=== PATIENT | female | born 1965 | race Caucasian/White ===

== ENCOUNTER 2018-06-05 11:19 | Outpatient (CLI) | payer MEDICAID, SELFPAY ==
[2018-06-08 09:38] LABS: Abs Immature Grans 0.01 k/cumm (0.0-0.09); Absolute Basophil Count 0.02 k/cumm (0.0-0.2); Absolute Eosinophil Count 0.19 k/cumm (0.0-0.7); Absolute Lymphocyte Count 1.64 k/cumm (1.2-3.4); Absolute Monocyte Count 0.54 k/cumm (0.11-0.7); Absolute Neutrophil Count 6.63 k/cumm (1.2-6.7); Basophils % 0.2; Eosinophils % 2.1; HCT 42.6 % (36.0-46.0); HGB 13.9 g/dL (12.0-15.5); Immature Grans % 0.1; Lymphocytes % 18.2; Mean Corp. HGB Concentration 32.6 g/dL (32.0-36.0); Mean Corpuscular Hemoglobin 31.4 pg (27.0-33.0); Mean Corpuscular Volume 96.4 fL (80-95); Mean Platelet Volume 9.6 fL (8.0-11.0); Neutrophils % 73.4; Platelet Count 239 x1000/uL (130-400); RBC 4.42 m/cumm (4.00-5.20); RBC Distribution Width 13.2 % (11.7-14.6); White Blood Cell Count 9.03 k/cumm (4.4-10.8)
[2018-06-08 09:58] LABS: Hemoglobin A1C 5.5 % (4.5-6.2)
[2018-06-08 10:59] LABS: ALT 23 U/L (12-78); AST 28 U/L (15-37); Albumin 3.7 g/dL (3.4-5.0); Alkaline Phosphatase 86 U/L (46-116); Anion Gap 6.9 mmol/L (3-11); BUN 23 mg/dL (7-18); Bilirubin, Total 0.3 mg/dL (0.2-1.0); CO2 28.1 mmol/L (21.0-32.0); CREATININE 0.96 mg/dL (0.55-1.02); Calcium 9.5 mg/dL (8.5-10.1); Chloride 105 mmol/L (98-107); Glucose 87 mg/dL (70-100); Lithium 0.49 mmol/L (0.60-1.20); Potassium 4.6 mmol/L (3.5-5.1); Sodium 140 mmol/L (136-145); TSH 2.15 uIU/mL (0.358-3.74); Total Protein 7.2 g/dL (6.4-8.2)
== END 2018-06-05 11:39 ==
PROVIDERS: PCP Nurse Practitioner; Visit Provider Nurse Practitioner Psychiatric/Mental Health
DX: F43.10 Post-traumatic stress disorder, unspecified (principal); Z51.81 Encounter for therapeutic drug level monitoring; Z79.899 Other long term (current) drug therapy
CPT/HCPCS: 36415; 80053; 80178; 83036; 84443; 85025

== ENCOUNTER 2018-06-10 09:17 | Outpatient (CLI) | payer MEDICAID, SELFPAY ==
[2018-06-10 10:16] LABS: Abs Immature Grans 0.02 k/cumm (0.0-0.09); Absolute Basophil Count 0.03 k/cumm (0.0-0.2); Absolute Eosinophil Count 0.14 k/cumm (0.0-0.7); Absolute Lymphocyte Count 1.55 k/cumm (1.2-3.4); Absolute Monocyte Count 0.46 k/cumm (0.11-0.7); Absolute Neutrophil Count 6.53 k/cumm (1.2-6.7); Basophils % 0.3; Eosinophils % 1.6; HCT 41.9 % (36.0-46.0); HGB 13.8 g/dL (12.0-15.5); Immature Grans % 0.2; Lymphocytes % 17.8; Mean Corp. HGB Concentration 32.9 g/dL (32.0-36.0); Mean Corpuscular Hemoglobin 31.2 pg (27.0-33.0); Mean Corpuscular Volume 94.8 fL (80-95); Mean Platelet Volume 9.8 fL (8.0-11.0); Monocytes % 5.3; Neutrophils % 74.8; Platelet Count 252 x1000/uL (130-400); RBC 4.42 m/cumm (4.00-5.20); RBC Distribution Width 13.3 % (11.7-14.6); White Blood Cell Count 8.73 k/cumm (4.4-10.8)
[2018-06-10 10:46] LABS: ALT 23 U/L (12-78); AST 23 U/L (15-37); Albumin 3.7 g/dL (3.4-5.0); Alkaline Phosphatase 89 U/L (46-116); Anion Gap 7.6 mmol/L (3-11); BUN 17 mg/dL (7-18); Bilirubin, Total 0.4 mg/dL (0.2-1.0); CO2 28.4 mmol/L (21.0-32.0); CREATININE 1.03 mg/dL (0.55-1.02); Calcium 9.6 mg/dL (8.5-10.1); Chloride 103 mmol/L (98-107); Estimated GFR 56.27 (mL/min/1.73m2); Glucose 85 mg/dL (70-100); Potassium 4.3 mmol/L (3.5-5.1); Sodium 139 mmol/L (136-145); Total Protein 7.2 g/dL (6.4-8.2)
[2018-06-10 10:48] LABS: Cholesterol 284 mg/dL (50-200); HDL Cholesterol 50 mg/dL (40-60); LDL CHOLESTEROL 197 mg/dL (<100); Triglyceride 186 mg/dL (30-150)
[2018-06-10 11:03] LABS: Lithium 0.83 mmol/L (0.60-1.20)
[2018-06-11 14:49] LABS: HIV-1 RNA Quantification Undetected copies/mL (UNDECT)
[2018-06-12 09:14] LABS: CD3 74 % (62-87); CD4 38 % (35-63); CD8 36 % (10-35)
== END 2018-06-10 09:37 ==
PROVIDERS: Nurse Practitioner Psychiatric/Mental Health; PCP Nurse Practitioner; Visit Provider Nurse Practitioner Family
DX: B20 Human immunodeficiency virus [HIV] disease (principal); Z79.899 Other long term (current) drug therapy; F43.10 Post-traumatic stress disorder, unspecified; Z51.81 Encounter for therapeutic drug level monitoring
CPT/HCPCS: 36415; 80053; 80061; 83721; 87536; 80178; 85025; 86359; 86360

== ENCOUNTER 2018-06-12 09:18 | Outpatient (CLI) | payer MEDICAID, SELFPAY ==
[2018-06-12 10:43] LABS: ALT 43 U/L (12-78); AST 53 U/L (15-37); Albumin 3.5 g/dL (3.4-5.0); Alkaline Phosphatase 88 U/L (46-116); Anion Gap 8.2 mmol/L (3-11); BUN 19 mg/dL (7-18); Bilirubin, Total 0.3 mg/dL (0.2-1.0); CO2 26.8 mmol/L (21.0-32.0); CREATININE 1.06 mg/dL (0.55-1.02); Calcium 9.3 mg/dL (8.5-10.1); Chloride 105 mmol/L (98-107); Estimated GFR 54.44 (mL/min/1.73m2); Glucose 94 mg/dL (70-100); Potassium 4.7 mmol/L (3.5-5.1); Sodium 140 mmol/L (136-145)
[2018-06-12 11:27] LABS: Lithium 0.67 mmol/L (0.60-1.20)
== END 2018-06-12 09:38 ==
PROVIDERS: PCP Nurse Practitioner; Visit Provider Nurse Practitioner Psychiatric/Mental Health
DX: F43.10 Post-traumatic stress disorder, unspecified (principal); Z51.81 Encounter for therapeutic drug level monitoring; Z79.899 Other long term (current) drug therapy
CPT/HCPCS: 36415; 80053; 80178

== ENCOUNTER 2018-06-23 09:58 | Outpatient (CLI) | payer MEDICAID, SELFPAY ==
[2018-06-23 12:09] LABS: Lithium 0.47 mmol/L (0.60-1.20)
[2018-06-23 12:20] LABS: ALT 30 U/L (12-78); AST 24 U/L (15-37); Albumin 3.9 g/dL (3.4-5.0); Alkaline Phosphatase 99 U/L (46-116); Anion Gap 10.3 mmol/L (3-11); BUN 18 mg/dL (7-18); Bilirubin, Total 0.8 mg/dL (0.2-1.0); CO2 27.7 mmol/L (21.0-32.0); CREATININE 0.97 mg/dL (0.55-1.02); Calcium 9.7 mg/dL (8.5-10.1); Chloride 101 mmol/L (98-107); Glucose 95 mg/dL (70-100); Potassium 4.5 mmol/L (3.5-5.1); Sodium 139 mmol/L (136-145); Total Protein 7.5 g/dL (6.4-8.2)
== END 2018-06-23 10:18 ==
PROVIDERS: PCP Nurse Practitioner; Visit Provider Nurse Practitioner Psychiatric/Mental Health
DX: F43.10 Post-traumatic stress disorder, unspecified (principal); Z51.81 Encounter for therapeutic drug level monitoring; Z79.899 Other long term (current) drug therapy
CPT/HCPCS: 36415; 80053; 80178; 84443

== ENCOUNTER 2018-07-22 06:57 | Outpatient (CLI) | payer MEDICAID, SELFPAY ==
[2018-07-22 08:09] LABS: Lithium 0.61 mmol/L (0.60-1.20)
[2018-07-22 08:21] LABS: ALT 22 U/L (12-78); AST 23 U/L (15-37); Albumin 3.4 g/dL (3.4-5.0); Alkaline Phosphatase 71 U/L (46-116); BUN 21 mg/dL (7-18); Bilirubin, Total 0.3 mg/dL (0.2-1.0); CREATININE 0.89 mg/dL (0.55-1.02); Calcium 9.2 mg/dL (8.5-10.1); Chloride 104 mmol/L (98-107); Glucose 85 mg/dL (70-100); Potassium 4.4 mmol/L (3.5-5.1); Sodium 138 mmol/L (136-145); Total Protein 6.7 g/dL (6.4-8.2)
== END 2018-07-22 07:17 ==
PROVIDERS: PCP Nurse Practitioner; Visit Provider Nurse Practitioner Psychiatric/Mental Health
DX: F43.10 Post-traumatic stress disorder, unspecified (principal); Z51.81 Encounter for therapeutic drug level monitoring; Z79.899 Other long term (current) drug therapy
CPT/HCPCS: 36415; 80053; 80178

== ENCOUNTER 2018-12-07 08:15 | Outpatient (CLI) | payer MEDICAID, SELFPAY ==
[2018-12-07 08:45] LABS: Abs Immature Grans 0.01 k/cumm (0.0-0.09); Absolute Basophil Count 0.02 k/cumm (0.0-0.2); Absolute Eosinophil Count 0.16 k/cumm (0.0-0.7); Absolute Lymphocyte Count 1.49 k/cumm (1.2-3.4); Absolute Neutrophil Count 4.01 k/cumm (1.2-6.7); Basophils % 0.3; Eosinophils % 2.7; HCT 38.5 % (36.0-46.0); HGB 12.6 g/dL (12.0-15.5); Immature Grans % 0.2; Lymphocytes % 24.9; Mean Corp. HGB Concentration 32.7 g/dL (32.0-36.0); Mean Corpuscular Hemoglobin 32.3 pg (27.0-33.0); Mean Corpuscular Volume 98.7 fL (80-95); Mean Platelet Volume 9.9 fL (8.0-11.0); Neutrophils % 66.9; Platelet Count 248 x1000/uL (130-400); RBC Distribution Width 13.6 % (11.7-14.6); White Blood Cell Count 5.99 k/cumm (4.4-10.8)
[2018-12-07 09:50] LABS: Lithium 0.61 mmol/L (0.60-1.20)
[2018-12-07 10:04] LABS: ALT 14 U/L (12-78); AST 12 U/L (15-37); Albumin 3.5 g/dL (3.4-5.0); Alkaline Phosphatase 74 U/L (46-116); Anion Gap 5.7 mmol/L (3-11); BUN 16 mg/dL (7-18); Bilirubin, Total 0.6 mg/dL (0.2-1.0); CO2 30.3 mmol/L (21.0-32.0); CREATININE 0.82 mg/dL (0.55-1.02); Calcium 9.6 mg/dL (8.5-10.1); Chloride 105 mmol/L (98-107); Cholesterol 303 mg/dL (50-200); Glucose 84 mg/dL (70-100); HDL Cholesterol 77 mg/dL (40-60); LDL CHOLESTEROL 198 mg/dL (<100); Potassium 4.2 mmol/L (3.5-5.1); Sodium 141 mmol/L (136-145); TSH (W/Ref FT4) 2.38 uIU/mL (0.358-3.74); Total Protein 6.7 g/dL (6.4-8.2); Triglyceride 69 mg/dL (30-150)
[2018-12-10 16:04] LABS: HIV-1 RNA Quantification Undetected copies/mL (UNDECT)
== END 2018-12-07 08:35 ==
PROVIDERS: Internal Medicine Infectious Disease; PCP Nurse Practitioner; Referring Provider Internal Medicine Infectious Disease; Visit Provider Nurse Practitioner Psychiatric/Mental Health
DX: B20 Human immunodeficiency virus [HIV] disease (principal); Z79.899 Other long term (current) drug therapy; F31.4 Bipolar disorder, current episode depressed, severe, without psychotic features; Z51.81 Encounter for therapeutic drug level monitoring
CPT/HCPCS: 36415; 80053; 80061; 83721; 87536; 80178; 83036; 84443; 85025

== ENCOUNTER 2018-12-14 08:00 | Outpatient (CLI) | payer MEDICAID, SELFPAY | END 2018-12-14 08:20 | PROVIDERS: PCP Nurse Practitioner; Referring Provider Nurse Practitioner Family; Visit Provider Internal Medicine Infectious Disease | DX: B20 Human immunodeficiency virus [HIV] disease (principal); Z79.899 Other long term (current) drug therapy; Z23 Encounter for immunization | CPT/HCPCS: 90471; 90686; 99215 ==

== ENCOUNTER 2019-01-29 10:49 | Outpatient (CLI) | payer MEDICAID, SELFPAY ==
--- NOTE | 2019-01-29 10:52 | CCCE_ITS ---
Date of service: 01/29/19 Time of Service: 10:51 [facility] Note Note: [facility] [place] Acute Visit Name: Diann Orta : 1965 Date: 01/29/2019 Subjective CC: ?I?m worried about my heart. I don?t know if you can get me to a heart doctor or if Anais has to. I think both of you told me I need to see one to check about plaque. Heart attacks run in my family. I?m lonely in [facility]. I want to move to [place] to be closer to my kids. Rosalva is going to take me to get a hamster today.? HPI: Diann has some off and on chest pain but none now of for w few weeks. She was hospitalized for OOC bipolar disorder last summer and spent months inpatient. She has a caser through [facility] and daily checks now that she is back in her apartment on [address]. She finds it depressing and lonely to live there. Through the HIV [facility] support group and [place] [employer], she has contact with peers and they take her to social gatherings, shopping and engage her in other activities. One of the [facility] workers is Rosalva who helps her a lot. She says she is taking all her medications including her HIV meds and her psychiatric medications. Otherwise she is feeling fairly well and has not had any febrile illnesses as of late. Medications: Atarax 50 mg prn, melatonin 3 mg q HS,Dolutegravir 50 mg 1/d, Descovy (emtricitabine 200/ tenoforvir alafen 25) 1/d, Vit D3, [place], naproxen,OCPs (once D/Cd by PRODUCTION SUPERINTENDENT, Omeprazole, valtrex Allergies: NKA ROS: NO chest pain now but describes she will get sharp pain and this will make her very worried. She denies, N/V, sweating or dyspnea associated with it. She will just be resting. She is not very physically active. She used to walk miles a day biut hasn?t since her psych D/C due to fear. Social Hx: Heavy ETOH in past, none since 2007, NO recreational drugs ? past cocaine, no tobacco. Lives alone in an apartment Fm Hx: ND? ?heart attacks? F, Bro, M bipolar, daughters depression, one M cousin w suicide Objective P: 80, R: 14, BP 130/80 AINAD, AAOx4, speech clear, coherent, Mood mildly anxious, affect appropriate. Skin W/D w good color, no swelling/edema. Last CD4 count 05/2019 was 594, last HUIV PCR 11/2018 <20/undetectable. [place] 0.6 then. Assessment/Plan Diann is stable as far as HIV status and there is not in need for repeat blood work now or change in medication, She will next be due to meet with Dr. Santoyo in May of 2019 and HIV related blood work will be due then. Advised to make an appointment with her PCP, Noelle Rose NP, to discuss intermittent sharp chest pain which does not sound to be cardiac but with her family history a further W/U may be warranted. To go to the ER if the pain changes, she gets short of breath with it or other symptoms develop. Bipolar disorder and anxiety. Reassured that it did not sound as though the symptoms are of a ?heart attack? but to see her PCP for a checkup. No change in her medications and to F/U w her psych and daily workers. Sirisha Edwards NP
== END 2019-01-29 11:09 ==
PROVIDERS: PCP Nurse Practitioner; Visit Provider Nurse Practitioner Family
DX: B20 Human immunodeficiency virus [HIV] disease (principal); Z79.899 Other long term (current) drug therapy
CPT/HCPCS: 99213

== ENCOUNTER 2019-02-02 10:00 | Outpatient (CLI) | payer MEDICAID, SELFPAY ==
[2019-02-02 11:53] LABS: Vitamin B12 463 pg/mL (193-986)
== END 2019-02-02 10:20 ==
PROVIDERS: PCP Nurse Practitioner; Visit Provider Nurse Practitioner Adult Health
DX: R41.89 Other symptoms and signs involving cognitive functions and awareness (principal)
CPT/HCPCS: 36415; 82607

== ENCOUNTER 2019-02-09 10:37 | Outpatient (CLI) | payer MEDICAID, SELFPAY ==
[2019-02-09 12:40] LABS: Lithium 0.85 mmol/L (0.60-1.20)
[2019-02-09 12:57] LABS: Albumin 3.7 g/dL (3.4-5.0); Alkaline Phosphatase 89 U/L (46-116); BUN 20 mg/dL (7-18); Bilirubin, Total 0.4 mg/dL (0.2-1.0); CREATININE 0.95 mg/dL (0.55-1.02); Calcium 9.7 mg/dL (8.5-10.1); Chloride 102 mmol/L (98-107); Cholesterol 311 mg/dL (50-200); Glucose 82 mg/dL (70-100); HDL Cholesterol 76 mg/dL (40-60); LDL CHOLESTEROL 205 mg/dL (<100); Potassium 4.6 mmol/L (3.5-5.1); Sodium 139 mmol/L (136-145); Total Protein 7.2 g/dL (6.4-8.2); Triglyceride 109 mg/dL (30-150)
[2019-02-09 12:58] LABS: ALT 25 U/L (12-78); AST 24 U/L (15-37)
== END 2019-02-09 10:57 ==
PROVIDERS: PCP Nurse Practitioner; Visit Provider Nurse Practitioner Family
DX: F31.4 Bipolar disorder, current episode depressed, severe, without psychotic features (principal); Z79.899 Other long term (current) drug therapy; Z51.81 Encounter for therapeutic drug level monitoring
CPT/HCPCS: 36415; 80053; 80061; 83721; 80178; 84443

== ENCOUNTER 2019-03-24 00:11 | Outpatient (CLI) | payer MEDICAID, SELFPAY ==
--- NOTE | 2019-03-24 11:30 | DI.MAMMO_ITS ---
SYMPTOMS/DIAGNOSIS: SCREENING, Z12.31 MAMMOGRAM: Mammograms were interpreted according to the usual protocol including computer analysis with CAD system, tomosynthesis and C view imaging. The breasts are heterogeneously dense. No dominant mass or clumped microcalcification is identified in either breast. Current examination is compared with previous examinations including February 2018 and there has been no gross interval change in appearance in comparison with the previous studies. CONCLUSION: No specific evidence of malignancy at this time. Routine screening examinations are suggested at yearly intervals in this age group according to the ACS/ACR guidelines. Category 1, breast density category C. MQSA ASSESSMENT OF FINDINGS: Negative. Category 1. Patient will receive a letter notifying them of these results. Bi-RADS category C. The breasts are heterogeneously dense, which may obscure small masses.
== END 2019-03-24 00:31 ==
PROVIDERS: PCP Nurse Practitioner; Visit Provider Obstetrics & Gynecology Gynecology
DX: Z12.31 Encounter for screening mammogram for malignant neoplasm of breast (principal)
CPT/HCPCS: 77063; 77067

== ENCOUNTER 2019-04-14 16:10 | Outpatient (REF) | payer MEDICAID, SELFPAY ==
[2019-04-14 20:02] LABS: Abs Immature Grans 0.02 k/cumm (0.0-0.09); Absolute Basophil Count 0.03 k/cumm (0.0-0.2); Absolute Eosinophil Count 0.29 k/cumm (0.0-0.7); Absolute Lymphocyte Count 1.93 k/cumm (1.2-3.4); Absolute Monocyte Count 0.47 k/cumm (0.11-0.7); Absolute Neutrophil Count 5.67 k/cumm (1.2-6.7); Basophils % 0.4; Eosinophils % 3.4; HCT 40.4 % (36.0-46.0); HGB 13.1 g/dL (12.0-15.5); Immature Grans % 0.2; Lymphocytes % 22.9; Mean Corp. HGB Concentration 32.4 g/dL (32.0-36.0); Mean Corpuscular Volume 98.8 fL (80-95); Mean Platelet Volume 10.4 fL (8.0-11.0); Monocytes % 5.6; Neutrophils % 67.5; Platelet Count 277 x1000/uL (130-400); RBC 4.09 m/cumm (4.00-5.20); RBC Distribution Width 13.5 % (11.7-14.6); White Blood Cell Count 8.41 k/cumm (4.4-10.8)
[2019-04-14 20:23] LABS: ALT 26 U/L (12-78); AST 29 U/L (15-37); Albumin 3.8 g/dL (3.4-5.0); Alkaline Phosphatase 98 U/L (46-116); Anion Gap 6.4 mmol/L (3-11); BUN 12 mg/dL (7-18); Bilirubin, Total 0.7 mg/dL (0.2-1.0); CO2 27.6 mmol/L (21.0-32.0); CREATININE 0.72 mg/dL (0.55-1.02); Calcium 9.5 mg/dL (8.5-10.1); Chloride 104 mmol/L (98-107); Glucose 86 mg/dL (70-100); Lipase 136 U/L (73-393); Sodium 138 mmol/L (136-145); Total Protein 7.4 g/dL (6.4-8.2)
== END 2019-04-14 16:30 ==
LOC: NCHCN 16:10
PROVIDERS: PCP Nurse Practitioner; Visit Provider Family Medicine
DX: R10.9 Unspecified abdominal pain (principal)
CPT/HCPCS: 80053; 83690; 85025

== ENCOUNTER 2019-06-07 00:31 | Outpatient (CLI) | payer MEDICAID, SELFPAY ==
--- NOTE | 2019-06-07 12:23 | DI.US_ITS ---
SYMPTOMS/DIAGNOSIS: ABDOMINAL BLOATING X SEVERAL MOS, R10.2, PELVIC AND PERINEAL PAIN PELVIC ULTRASOUND: Pelvic ultrasound was performed transabdominally and transvaginally. Please see the accompanying data sheet for measurements of the pelvic structures. Limited scanning of the kidneys is unremarkable. There is moderate free pelvic fluid. The uterus is unremarkable in appearance except for a thickened endometrial stripe at 11-13 mm in this postmenopausal patient. Right ovary unremarkable in appearance. Left ovary contains multiple cysts, which appear avascular on Doppler evaluation. These do appear to be simple/septated cysts. CONCLUSION: Free fluid in the pelvis. Multiple left ovarian simple cysts versus septated cysts in a postmenopausal patient. Additional evaluation with pelvic MRI may be considered to confirm the cystic nature of these small masses. Thickened endometrial stripe, abnormal in the postmenopausal age group. Endometrial stripe is fairly homogeneous, but endometrial neoplastic disease is not excluded on the basis of this examination.
== END 2019-06-07 00:51 ==
PROVIDERS: PCP Nurse Practitioner; Visit Provider Nurse Practitioner
DX: R14.0 Abdominal distension (gaseous) (principal); R10.2 Pelvic and perineal pain; N83.292 Other ovarian cyst, left side; N85.8 Other specified noninflammatory disorders of uterus
CPT/HCPCS: 76830; 76856

== ENCOUNTER 2019-06-09 00:25 | Outpatient (CLI) | payer MEDICAID, SELFPAY ==
--- NOTE | 2019-06-09 10:48 | MERGEMPI_ITS ---
*[facility]* *[facility]* [address] [place] [address] Myocardial Perfusion Imaging - SPECT Aj protocol Date of study: 06/09/2019 *PATIENT PRESENTATION* Height: 167.6cm (66in) Blood Pressure: Weight: 107.7kg (237lb) BSA: 2.29m^2 Referring physician: Randal Renteria Ordering physician: Sondra Lennon Impressions: - Test changed exercise to pharmacological stress because target heart rate was not achieved. - Normal myocardial perfusion and contraction after pharmacological stress. - Low risk of cardiac events. Summary: 1. Myocardial perfusion imaging: No myocardial perfusion defects noted. 2. The calculated left ventricular ejection fraction after stress: 56%. LV global systolic function is normal. No left ventricular regional motion abnormality. 3. Stress ECG conclusions: The stress ECG is negative. 4. Stress: The target heart rate was not achieved. The heart rate response to stress is normal. There is a normal resting blood pressure with an appropriate response to stress. Exercise capacity is mildly diminished for age. Indication: R07.9, R06.02. History: REASON FOR TESTING: PATIENT TESTING TODAY FOR FURTHER RISK STRATIFICATION. FOR THE PAST 2 MONTHS SHE REPORTS FLUTTERING/CRAMPING LEFT SIDED CHEST PAIN THAT HAPPENS APPROXIMATELY ONCE A WEEK AND LASTS ABOUT 10 MINUTES AND IS RELEIVED WITH RELAXATION. THE CHEST PAIN HAPPENS AT REST AND WITH LYING DOWN TO GO TO SLEEP AT NIGHT. SHE ALSO STATES SHE IS HAVING INCREASED SOB WITH GOING UP AND DOWN STAIRS. PATIENT DENIES CHEST PAIN UPON ARRIVAL TO TESTING TODAY. SIGNIFICANT PAST MEDICAL HISTORY: PTSD, ALCOHOL AND OPOID ABUSE--BOTH IN REMISSION, HIV, DEPRESSION, BIPOLAR AFFECTIVE DISORDER. SMOKING STATUS: QUIT 1994. OCCASIONAL SMOKER FOR APPROXIMATELY 7 YEARS. EXERCISE ROUTINE: DAILY ADL'S. Risk factors: Family history of coronary artery disease. Obesity. Dyslipidemia. Cholesterol: 311mg/dl. HDL: 76mg/dl. LDL: 205mg/dl. Triglycerides: 109mg/dl. ALLERGIES: NO KNOWN MEDICATION ALLERGIES. MEDICATIONS: TIVICAY (DOSE UNKNOWN) DAILY, VITAMIN D 2000 UNITS DAILY, DESCOVY (DOSE UNKNOWN) DAILY, CLONAZEPAM 0.5 MG BID PRN, LITHIUM 750 MG HS, PRAZOSIN 2 MG HS, RISPERIDONE 0.5 MG DAILY, SERTRALINE 250 MG DAILY, DOCUSATE SODIUM 100 MG DAILY, ESTRADOIL/LEVONORGESTREL 0.045 MF/0.015MG 24 HOUR WEEKLY PATCH, POLYETHYLENE GLYCOL 17 GRAMS, VALACYCLOVIR 500 MG DAILY. Imaging Technique: Protocol: Aj protocol. Acquisition: Gated SPECT; 1 day - rest/stress. The patient was imaged in the supine position. Attenuation correction used. Isotope administration: - Rest. Tc[99m]-sestamibi. Dose: 10.9mCi. Injection time: 11:05 AM. Injection to stress time: 00:45. - Stress. Tc[99m]-sestamibi. Dose: 35mCi. Injection time: 01:48 PM. 1-2 min before end of exercise Baseline ECG: SINUS RHYTHM/FIRST DEGREE HEART BLOCK WITH ID INTERVAL OF 0.22. HR 54 BPM. Normal ECG. Stress protocol: + +---+ + + !Stage !HR !BP (mmHg) !Comments ! + +---+ + + !Baseline supine !54 !116/84 (95) ! ! + +---+ + + !Baseline standing !67 !114/84 (94) ! ! + +---+ + + !Stage I; 1.7mph, 10degrees; 3 min!93 !120/86 (97) ! ! + +---+ + + !Peak stress !132! ! ! + +---+ + + !Recovery; 1 min !101!154/90 (111)! ! + +---+ + + !Baseline !59 !118/72 (87) ! ! + +---+ + + !1 min !---!120/82 (95) !Inject Regadenoson.! + +---+ + + !3 min !78 !116/80 (92) ! ! + +---+ + + !6 min !74 !110/68 (82) ! ! + +---+ + + * Stress results: STRESS TEST ENDED IN 4 MINUTES DUE TO FATIGUE AND SOB. NORMAL HEART RATE AND BLOOD PRESSURE. MAX HEART RATE: 132. 79 % OF TARGET HEART RATE ACHIEVED. MET'S: 6.45. NO ECTOPY. EPIGASTRIC BURNING PAIN AT 4 MIN[address]ES WALKING STRESS TEST. NO ST SEGMENT CHANGES. MILDLY DIMINISHED FUNCTIONAL CAPACITY. UNABLE TO COMPLETE AJ PROTOCOL WALKING STRESS TEST DUE TO FATIGUE, SOB, AND INABLILITY TO MEET TARGET HEART RATE. LEXISCAN STRESS TEST ENDED IN 6 MINUTES 33 SECONDS. NORMAL HEART RATE AND BLOOD PRESSURE RESPONSE TO LEXISCAN INJECTION. NO ECTOPY. EPIGASTRIC BURNING PAIN SUBSIDED AT 5 MINUTES POST LEXISCAN INJECTION. NO SIGNIFICANT ST SEGMENT CHANGES. Maximal heart rate during stress was 132bpm (79% of maximal predicted heart rate). The maximal predicted heart rate was 167bpm. The target heart rate was not achieved. The heart rate response to stress is normal. There is a normal resting blood pressure with an appropriate response to stress. The rate-pressure product for the peak heart rate and blood pressure was 36415rj Hg/min. Exercise capacity is mildly diminished for age. Stress ECG: The stress ECG is negative. Myocardial perfusion: Imaging information: gated. The image quality was excellent. Left ventricular size is normal. No myocardial perfusion defects noted. Ventricular Function (Wall Motion): The calculated left ventricular ejection fraction after stress: 56%. LV global systolic function is normal. No left ventricular regional motion abnormality. Study data: Randal Renteria MD supervised and was readily available during the procedure. This study was interpreted by [facility]. Study status: Routine. Consent: The risks, benefits, and alternatives to the procedure were explained to the patient and informed consent was obtained. Procedure: Initial setup. A baseline ECG was recorded. Surface ECG leads and manual cuff blood pressure measurements were monitored. Heart sounds: Normal. Lung sounds: Normal. Treadmill exercise testing was performed using the Aj protocol. The patient exercised for 4 min, to protocol stage 2. Exercise was terminated due to dyspnea and fatigue. Study completion: All catheters inserted during the procedure were removed. The patient tolerated the procedure well and was discharged from the lab. Discharge: The patient left the laboratory in stable condition. Birthdate: Patient birthdate: 1965. Sex: Gender: female. Study date: Study date: 06/09/2019. Study time: 00:01 AM. Signature Documentation: - The imaging portion of this study was interpreted by Nuclear Chief Science Officer Randal Renteria MD. - The Stress ECG portion of this study was interpreted by Randal Renteria MD. Electronically signed by Randal Renteria 06/09/2019 15:20
[2019-06-09] MEDS: Regadenoson 0.4 MG/5 ML SYR IVP (14:27)
== END 2019-06-09 00:45 ==
PROVIDERS: PCP Nurse Practitioner; Visit Provider Nurse Practitioner
DX: R07.9 Chest pain, unspecified (principal); R06.02 Shortness of breath; E78.5 Hyperlipidemia, unspecified; Z87.891 Personal history of nicotine dependence; Z82.49 Family history of ischemic heart disease and other diseases of the circulatory system
CPT/HCPCS: 78452; 93017; J2785

== ENCOUNTER 2019-06-18 02:02 | Outpatient (CLI) | payer MEDICAID, SELFPAY ==
[2019-06-18 09:57] LABS: Abs Immature Grans 0.03 k/cumm (0.0-0.09); Absolute Basophil Count 0.04 k/cumm (0.0-0.2); Absolute Eosinophil Count 0.28 k/cumm (0.0-0.7); Absolute Lymphocyte Count 1.92 k/cumm (1.2-3.4); Absolute Monocyte Count 0.48 k/cumm (0.11-0.7); Absolute Neutrophil Count 5.57 k/cumm (1.2-6.7); Basophils % 0.5; Eosinophils % 3.4; HCT 40.8 % (36.0-46.0); HGB 13.2 g/dL (12.0-15.5); Immature Grans % 0.4; Lymphocytes % 23.1; Mean Corp. HGB Concentration 32.4 g/dL (32.0-36.0); Mean Corpuscular Volume 98.8 fL (80-95); Mean Platelet Volume 9.3 fL (8.0-11.0); Monocytes % 5.8; Neutrophils % 66.8; Platelet Count 270 x1000/uL (130-400); RBC 4.13 m/cumm (4.00-5.20); White Blood Cell Count 8.32 k/cumm (4.4-10.8)
[2019-06-18 10:19] LABS: Hemoglobin A1C 5.3 % (4.5-6.2)
[2019-06-18 11:20] LABS: Lithium 0.65 mmol/L (0.60-1.20)
[2019-06-18 11:24] LABS: ALT 11 U/L (14-59); AST 17 U/L (15-37); Albumin 3.5 g/dL (3.4-5.0); Alkaline Phosphatase 104 U/L (46-116); Anion Gap 9.1 mmol/L (3-11); BUN 16 mg/dL (7-18); Bilirubin, Total 0.4 mg/dL (0.2-1.0); CO2 25.9 mmol/L (21.0-32.0); CREATININE 0.81 mg/dL (0.55-1.02); Calcium 9.4 mg/dL (8.5-10.1); Chloride 104 mmol/L (98-107); Glucose 99 mg/dL (70-100); Potassium 4.4 mmol/L (3.5-5.1); Sodium 139 mmol/L (136-145); Total Protein 7.1 g/dL (6.4-8.2)
[2019-06-18 11:32] LABS: TSH (W/Ref FT4) 2.71 uIU/mL (0.36-3.74)
[2019-06-21 11:17] LABS: CD3 75 % (62-87); CD4 43 % (35-63); CD8 32 % (10-35)
[2019-06-21 15:14] LABS: HIV-1 RNA Quantification Undetected copies/mL (UNDECT)
== END 2019-06-18 02:22 ==
PROVIDERS: Nurse Practitioner Family; PCP Nurse Practitioner; Visit Provider Internal Medicine Infectious Disease
DX: F31.4 Bipolar disorder, current episode depressed, severe, without psychotic features (principal); Z51.81 Encounter for therapeutic drug level monitoring; Z79.899 Other long term (current) drug therapy; B20 Human immunodeficiency virus [HIV] disease
CPT/HCPCS: 36415; 80053; 87536; 80178; 83036; 84443; 85025; 86359; 86360

== ENCOUNTER 2019-06-28 16:29 | Outpatient (CLI) | payer MEDICAID, SELFPAY | END 2019-06-28 16:49 | PROVIDERS: PCP Nurse Practitioner; Referring Provider Nurse Practitioner Family; Visit Provider Internal Medicine Infectious Disease | DX: B20 Human immunodeficiency virus [HIV] disease (principal); Z79.899 Other long term (current) drug therapy; Z23 Encounter for immunization | CPT/HCPCS: 90471; 90472; 90686; 90750; 99215 ==

== ENCOUNTER 2019-07-20 09:46 | Outpatient (CLI) | payer MEDICAID, SELFPAY ==
[2019-07-20 13:28] LABS: Lithium 0.56 mmol/L (0.60-1.20)
[2019-07-20 13:47] LABS: ALT 25 U/L (14-59); AST 25 U/L (15-37); Albumin 3.9 g/dL (3.4-5.0); Alkaline Phosphatase 99 U/L (46-116); Anion Gap 10.5 mmol/L (3-11); BUN 15 mg/dL (7-18); Bilirubin, Total 0.6 mg/dL (0.2-1.0); CO2 26.5 mmol/L (21.0-32.0); CREATININE 0.98 mg/dL (0.55-1.02); Calcium 9.7 mg/dL (8.5-10.1); Calculated LDL 138 mg/dL; Chloride 103 mmol/L (98-107); Cholesterol 222 mg/dL (50-200); Estimated GFR 59.37 (mL/min/1.73m2); Glucose 97 mg/dL (70-100); HDL Cholesterol 56 mg/dL (40-60); Potassium 4.3 mmol/L (3.5-5.1); Sodium 140 mmol/L (136-145); Total Protein 7.7 g/dL (6.4-8.2); Triglyceride 144 mg/dL (30-150)
== END 2019-07-20 10:06 ==
PROVIDERS: PCP Nurse Practitioner; Visit Provider Nurse Practitioner Family
DX: F31.4 Bipolar disorder, current episode depressed, severe, without psychotic features (principal); Z51.81 Encounter for therapeutic drug level monitoring; Z79.899 Other long term (current) drug therapy; E78.5 Hyperlipidemia, unspecified
CPT/HCPCS: 36415; 80053; 80061; 80178; 84443

== ENCOUNTER 2019-10-27 10:58 | Outpatient (CLI) | payer MEDICAID, SELFPAY ==
[2019-10-27 11:53] LABS: Abs Immature Grans 0.02 k/cumm (0.0-0.09); Absolute Basophil Count 0.03 k/cumm (0.0-0.2); Absolute Eosinophil Count 0.25 k/cumm (0.0-0.7); Absolute Lymphocyte Count 1.72 k/cumm (1.2-3.4); Absolute Monocyte Count 0.41 k/cumm (0.11-0.7); Absolute Neutrophil Count 5.37 k/cumm (1.2-6.7); Basophils % 0.4; Eosinophils % 3.2; HCT 41.2 % (36.0-46.0); HGB 13.2 g/dL (12.0-15.5); Immature Grans % 0.3 %; Lymphocytes % 22.1; Mean Corpuscular Hemoglobin 31.7 pg (27.0-33.0); Mean Platelet Volume 10.1 fL (8.0-11.0); Monocytes % 5.3; Neutrophils % 68.7; Platelet Count 278 x1000/uL (130-400); RBC 4.16 m/cumm (4.00-5.20); RBC Distribution Width 13.1 % (11.7-14.6)
[2019-10-27 12:25] LABS: Lithium 0.82 mmol/L (0.60-1.20)
[2019-10-27 12:47] LABS: ALT 16 U/L (14-59); AST 22 U/L (15-37); Albumin 3.7 g/dL (3.4-5.0); Alkaline Phosphatase 94 U/L (46-116); Anion Gap 8.5 mmol/L (3-11); BUN 14 mg/dL (7-18); Bilirubin, Total 0.4 mg/dL (0.2-1.0); CO2 26.5 mmol/L (21.0-32.0); CREATININE 1.08 mg/dL (0.55-1.02); Calcium 9.4 mg/dL (8.5-10.1); Chloride 107 mmol/L (98-107); Estimated GFR 53.07 (mL/min/1.73m2); Glucose 100 mg/dL (74-106); Potassium 4.3 mmol/L (3.5-5.1); Sodium 142 mmol/L (136-145); TSH 2.62 uIU/mL (0.36-3.74)
== END 2019-10-27 11:18 ==
PROVIDERS: PCP Nurse Practitioner; Visit Provider Nurse Practitioner Family
DX: F31.4 Bipolar disorder, current episode depressed, severe, without psychotic features (principal); Z79.899 Other long term (current) drug therapy; Z51.81 Encounter for therapeutic drug level monitoring
CPT/HCPCS: 36415; 80053; 87536; 80178; 83036; 84443; 85025; 86359; 86360

== ENCOUNTER 2019-12-31 00:59 | Outpatient (CLI) | payer MEDICAID, SELFPAY ==
[2019-12-31 13:54] LABS: Lithium 1.63 mmol/L (0.60-1.20)
[2019-12-31 14:08] LABS: Anion Gap 6.3 mmol/L (3-11); BUN 14 mg/dL (7-18); CO2 26.7 mmol/L (21.0-32.0); CREATININE 1.04 mg/dL (0.55-1.02); Calcium 9.6 mg/dL (8.5-10.1); Chloride 106 mmol/L (98-107); Estimated GFR 55.43 (mL/min/1.73m2); Glucose 92 mg/dL (74-106); Potassium 4.1 mmol/L (3.5-5.1); Sodium 139 mmol/L (136-145)
== END 2019-12-31 01:19 ==
PROVIDERS: PCP Nurse Practitioner; Visit Provider Nurse Practitioner Family
DX: F31.4 Bipolar disorder, current episode depressed, severe, without psychotic features (principal); Z79.899 Other long term (current) drug therapy; Z51.81 Encounter for therapeutic drug level monitoring
CPT/HCPCS: 36415; 80048; 80178; 84443

== ENCOUNTER 2020-01-07 01:56 | Outpatient (CLI) | payer MEDICAID, SELFPAY ==
[2020-01-07 09:13] LABS: CREATININE 1.15 mg/dL (0.55-1.02); Estimated GFR 49.17 (mL/min/1.73m2); Lithium 1.09 mmol/L (0.60-1.20)
== END 2020-01-07 02:16 ==
PROVIDERS: PCP Nurse Practitioner; Visit Provider Nurse Practitioner Family
DX: F31.4 Bipolar disorder, current episode depressed, severe, without psychotic features (principal); Z79.899 Other long term (current) drug therapy; Z51.81 Encounter for therapeutic drug level monitoring
CPT/HCPCS: 36415; 80178; 82565

== ENCOUNTER 2020-01-12 15:06 | Outpatient (CLI) | payer MEDICAID, SELFPAY ==
--- NOTE | 2020-01-12 15:11 | W.CCNOTE ---
Date of service: 01/12/20 Time of Service: 15:12 [facility] Note Note: This telephone follow up for Diann is made first to [facility] as she did not answer or return 3 different days of phone contact attempts and there was concern for her well being. She would be due for follow up HIV well care this month and all well patient visits are being canceled due to Covid19. It was her caseworker at [facility] who informed me she had a psychiatric episode and was admitted to the care of psychiatry at the [facility] in [facility]. She is being self isolated from other patients and staff due to the SARS -CoV2 pandemic and has remained well. A phone call to the [facility] staff verified this information, and a brief conversation with Diann also verified she feels well physically and feels she is gaining. The conversation was brief and her career development engineer verified that she is getting all of her medications as ordered. Ngoc Solorzano psychiatric nursing aide is prescribing and monitoring her psych meds and ordering follow up blood workalthough lab visits are being put on hold now due to the pandemic unless urgent. Diann would be due for HIV blood work now but her viral load has been undetectable and with no known break in her HIV medication therapy, this can be postponed until a safer time to go to the lab. A review of all her HIV and HIV related medications shows that she has pleanty of Tivicay 50mg tabs and Descovy 200-25 mg tabs with refills to last through the mid summer point but she will needs refills of the Valtrx 1 GM tablets of which she takes 1 a day. This is renewed for #90 w 3 refills if the insurance will pay and called into the [facility] pharmacy, [facility] - phone number , fax . They will call if there are issues with getting the medications and when she is discharged. Sirisha Edwards NP
== END 2020-01-12 15:26 ==
PROVIDERS: PCP Nurse Practitioner; Visit Provider Nurse Practitioner Family
DX: B20 Human immunodeficiency virus [HIV] disease (principal); Z53.9 Procedure and treatment not carried out, unspecified reason
CPT/HCPCS: 99213

== ENCOUNTER 2020-01-25 07:57 | Emergency (ER) | payer MEDICAID, SELFPAY ==
[2020-01-25] VITALS (85 sets, daily range): BP systolic 61–144; BP diastolic 45–131; PULSE 64–105; RESP 14–37; TEMP 36.4–37.1; O2SAT 95–100
--- NOTE | 2020-01-25 08:00 | DI.RAD_ITS ---
EXAM: XR CHEST 2V PA LATERAL CLINICAL HISTORY: cough, left sided crackles TECHNIQUE: COMPARISON: from 07/18/2016 FINDINGS: AP and lateral views were obtained. There is some loss of the diaphragmatic contour posteriorly seen on the lateral view., as well as some patchy increased opacity. There is a question of minimal patc hy infiltrate in right and left lung bases on the AP view. Otherwise lungs appear clear. Cardiac si ze is within normal limits. No gross pleural effusion seen. IMPRESSION: Suspect basilar pneumonia, appropriate follow-up studies requested.
--- NOTE | 2020-01-25 08:18 | W.ED.GENAD ---
Discharge Plan Disposition Patient Disposition: OTHER Condition: Good Discharge Details Chief Complaint: AMS/LOC Clinical Impression: Pneumonia, UTI (urinary tract infection), Altered mental status Primary Care Provider: Sondra Lennon ED Provider: Tk Moreno Home Meds and New Rx's Prescriptions: No Action omeprazole 20 mg capsule,delayed release(DR/EC) 20 mg PO DAILY RF: 0 docusate sodium [Colace] 100 mg capsule 100 mg PO BID RF: 0 valacyclovir [Valtrex] 500 mg tablet 500 mg PO DAILY RF: 0 cholecalciferol (vitamin D3) [Vitamin D3] 2,000 UNIT capsule 2,000 unit PO DAILY RF: 0 sertraline 100 mg tablet 200 mg PO DAILY RF: 0 lithium carbonate 450 mg tablet extended release 450 mg PO HS RF: 0 lithium carbonate 300 mg tablet extended release 300 mg PO HS RF: 0 clonazepam [Klonopin] 0.5 mg tablet 0.5 mg PO BID PRNRF: 0 Tivicay 50 MG tablet 1 tab PO DAILY RF: 0 acetaminophen 325 mg Tablet 650 mg PO Q6H PRN PRNRF: 0 atorvastatin 20 mg tablet 20 mg PO .QPM RF: 0 topiramate 25 mg tablet 25 mg PO BID RF: 0 risperidone [Risperdal] 3 mg tablet 3 mg PO BID RF: 0 divalproex [Depakote ER] 500 mg tablet extended release 24 hr 500 mg PO BID RF: 0 benztropine 1 mg tablet 1 mg PO BID RF: 0 zolpidem [Ambien] 5 mg tablet 5 mg PO HS RF: 0 Descovy 1 EACH tablet 1 tab PO DAILY RF: 0 Discharge Data Discharge Date/Time-TO BE ENTERED AT DEPARTURE: 01/25/20 16:06 Medical Decision Making 55-year-old female with a past medical history of HIV, alcohol abuse, bipolar, mild cognitive impairment, who presents today for evaluation of altered mental status. She was recently transitioned from lithium to Depakote. She has been staying at the [facility] bed [facility]. Over the last 24 hours per the care bed she has fallen, the patient does not recall this event though. She has had occasional diarrhea, but denies any recent antibiotics. No foreign travel. Per caregivers at the care bed her mental status has been somewhat off, which they feel has been similar to previous times when she has transition from lithium to other medications. Currently the patient denies any other complaints. She does admit to a mild cough, but initially was denying this. No vomiting, no pain, no headache. No other complaints. Physical exam demonstrates slightly altered patient, pupils are mildly dilated, reactive slightly sluggish, 2 beat asterixis is present, difficulty with [id number], and ANO x1. GCS is 15 though. Remainder the exam is otherwise unremarkable except for small amount of crackles in the left lower lung carnes. Differential includes iatrogenic causes of her altered mental status as she transitions from lithium to Depakote, however with her HIV history infectious etiology, metabolic component is certainly on the differential as well. We will get a CAT scan of the head, no clinical evidence of meningitis at this time, so lumbar puncture is currently not indicated. We will gently rehydrate and monitor closely. 9:54 AM Work-up demonstrates notable urinary tract infection, as well as mild pneumonia. We have finally gotten her formal med list, and it does appear that she is still actually been taking lithium, and has recently just started on the Depakote. We will add a lithium level. CT scan of the head shows no acute process, abscess, or other abnormality at this time. Patient's mental status improving with fluids. Laboratory work-up otherwise unremarkable. Signs and symptoms at this time still appear clinically inconsistent with meningitis or encephalitis, no current clinical indication for lumbar puncture. At this time with the patient's history and symptoms we will start broad-spectrum antibiotics of vancomycin, ceftriaxone, and doxycycline for the pneumonia and urinary tract infection. We have contacted the hospitalist, Dr. Giang has requested that we transfer to a tertiary care facility secondary to the complicated nature of the patient's history and infectious process in conjunction with her history of HIV. Will contact [facility] for transfer. Review of her med rec does demonstrate that she has been taking her HIV medication as directed. Of note at this time the patient appears notably stable, shows no signs of septicemia, and does seem to be showing mild increase in her current mental status. 11:30 AM I contacted [facility] discussed the entire case and the findings as well as the hospitalist concern. We spoke with Dr. Reyna and the resident, and at this time they both feel that the patient would benefit from hospitalization but does not require a tertiary care facility level of care. They did recommend keeping the patient here and consulting their ID team versus transferring to another facility that would feel more comfortable with the patient. I did contact the hospitalist Dr. Giang discussed [facility] recommendations, at this time Dr. Giang feels that because of the HIV component of the case, the potential for changing SR therapy medications which we do not have here, and that we have no ID physician on staff and available to manage the patient actively, she feels that patient should not be admitted here and is requesting that I contact [facility] again for transfer. Of note at this time the patient actually does seem to note some moderate improvement. Mental status is improving, she is very comfortable, she does not appears altered anymore and appears to be more francine to baseline. She does show a mild to moderate clinical improvement currently. Vancomycin, ceftriaxone, and doxycycline have been given. Additionally of note the patient's Depakote and lithium levels are stable. The patient continues to show no signs of septicemia or significant instability. No current indication for increased invasive evaluation. 2:35 PM Contacted [facility] again and they state that they do not believe that the patient would be appropriate for transfer to a tertiary care facility, and recommends transfer to 1 of their lateral facilities at [place]. Hospitalist tools administrator Dr. Kilgore has come down, he has seen and assessed the patient himself. He recommends that we contact [facility] to discuss the case with them for potential transfer as the patient has been seen and managed by their ID team before. At This time the patient remains notably stable, continues to show no significant or concerning fluctuations in her vital signs, continues to show no nuchal rigidity or meningismus, no indication for lumbar puncture at this time. Mental status is improved. I did contact [facility] at 2:30, and discussed the case with the hospitalist, who states that she does not feel that the patient would be appropriate for transfer at this time given the stability of her symptoms. Review of [facility] ID note from few months ago note good medication compliance, undetectable viral levels, and stable patient from an HIV perspective. Right now [facility] hospitalist does not recommend changing antiviral therapy, and recommends continuing current treatment protocol at our facility. She does recommend talking to the ID physician at the [facility] for further discussion, but does not think transfer is appropriate at this time. We will reach out to ID. 3:15 PM I spoke with the ID physician Dr. Moran, she states that at this time she is not certain if the patient needs admission at all. She does recommend treating with antibiotics if felt indicated. She does not recommend stopping or changing the HIV medication, stating specifically that a hospital admission is not good time to change antiviral HIV medication. She also states that she does not recommend transfer at this time. I did speak with hospitalist at [facility] in affiliation with [facility], and has accepted the patient for lateral transfer. I did contact the tools administrator on-call Dr. Kilgore, and again discussed the scenario with him as well as the various recommendations from hospitalist and ID team. I also discussed my potential concern for the [facility] with her baseline mild cognitive impairment, and her history of mental illness, although it is notably stable at this time. And he again discussed it with Dr. Giang, and the decision was made to transfer to [place]. Patient will be transferred for inpatient management of her pneumonia and urinary tract infection to [facility]. I have extensively reviewed the treatment plan with the patient. I have addressed all patient concerns at this time. I have also discussed the plan with the admitting physician and they agree with the current assessment and plan and have agreed to assume responsibility for the patient. All parties demonstrate verbal understanding and agreement with our assessment and plan at this time. 4:06 PM EMS has arrived to take the patient. Repeat exam was performed prior to transfer, and at this time the patient remains notably stable, mental status has improved, vital signs remained stable, repeat exam continues to show no signs of hypoxemia, hemodynamic instability, nuchal rigidity, or meningismus. She remains notably stable. She agrees with the plan for transfer. Patient is low risk for coronavirus. I did discuss that we have not started testing for coronavirus with the outside hospitalist , as we were uncertain of disposition location for the patient, and that coronavirus is a send out test for us. Additionally I did discuss how it is our common policy that whenever we do admit someone that the get tested out of an abundance of precaution. Patient will be transferred to outlying facility for further management. 5 PM The patient's primary care provider Sondra Lennon was contacted after she called requesting information as to why the patient was transferred. We did discuss the location that she was transferred to, and because of the patient's baseline cognitive impairment I did recommend that the PCP contact the [facility] for close coordinated care once the patient is discharged. EKG 8: 27 Rate 73, MI 210, QTc 461, QRS 90, sinus rhythm, no significant ST elevations or depressions, no evidence of STEMI, mild artifact. FINDINGS: AP and lateral views were obtained. There is some loss of the diaphragmatic contour posteriorly seen on the lateral view., as well as some patchy increased opacity. There is a question of minimal patchy infiltrate in right and left lung bases on the AP view. Otherwise lungs appear clear. Cardiac size is within normal limits. No gross pleural effusion seen. IMPRESSION: Suspect basilar pneumonia, appropriate follow-up studies requested. FINDINGS: Noncontrast cranial CT was performed. There is mild generalized cerebral atrophy and there are mild periventricular white matter areas of decreased attenuation consistent with microvascular ischemic change, the findings are somewhat prominent for this age group. There is no evidence of acute intracranial hemorrhage, mass effect, or midline shift. Motion artifact somewhat limits interpretation. The orbital and temporal bone structures appear intact and the visualized paranasal sinuses and mastoid air cells appear clear. IMPRESSION: No evidence of acute intracranial process, somewhat limited scan due to motion artifact. HPI General Date/Time Provider Initiated Documentation: 01/25/20 08:04. HPI Narrative: 55-year-old female with a past medical history of HIV, alcohol abuse, bipolar, mild cognitive impairment, who presents today for evaluation of altered mental status. She was recently transitioned from lithium to Depakote. She has been staying at the [facility] bed [facility]. Over the last 24 hours per the care bed she is falling, the patient does not recall this event though. She has had occasional diarrhea, but denies any recent antibiotics. No foreign travel. Per caregivers at the care bed her mental status has been somewhat off, which they feel has been similar to previous times when she has transition from lithium to other medications. Currently the patient denies any other complaints. She does admit to a mild cough, but initially was denying this. No vomiting, no pain, no headache. No other complaints. Related Data Home Medications Medication Instructions Recorded Confirmed Tivicay 1 tab PO DAILY 07/18/16 01/25/20 cholecalciferol (vitamin D3) 2,000 unit PO DAILY 01/21/17 01/25/20 [Vitamin D3] Descovy 1 tab PO DAILY 03/26/18 01/25/20 clonazepam 0.5 mg tablet 0.5 mg PO BID PRN 01/06/19 01/25/20 lithium carbonate 300 mg 300 mg PO HS tab 01/06/19 08/19/19 tablet,extended release lithium carbonate 450 mg 450 mg PO HS tab 01/06/19 08/19/19 tablet,extended release sertraline 100 mg tablet 200 mg PO DAILY 01/06/19 01/25/20 docusate sodium 100 mg capsule 100 mg PO BID 02/02/19 01/25/20 omeprazole 20 mg capsule,delayed 20 mg PO DAILY 02/02/19 01/25/20 release valacyclovir 500 mg tablet 500 mg PO DAILY 04/26/19 01/25/20 acetaminophen 650 mg PO Q6H PRN PRN 01/25/20 01/25/20 atorvastatin 20 mg PO .QPM 01/25/20 01/25/20 benztropine 1 mg PO BID 01/25/20 01/25/20 divalproex [Depakote ER] 500 mg PO BID 01/25/20 01/25/20 risperidone [Risperdal] 3 mg PO BID 01/25/20 01/25/20 topiramate 25 mg PO BID 01/25/20 01/25/20 zolpidem [Ambien] 5 mg PO HS 01/25/20 01/25/20 Allergies Allergy/AdvReac Type Severity Reaction Status Date / Time No Known Allergies Allergy Unverified 01/25/20 08:12 General Stated Complaint: AMS/LOC DIANA: 2 Review of Systems All systems reviewed & are unremarkable except as noted in HPI and below FOR[facility]LY [facility] Medical History Alcohol abuse, in remission (Inactive) ASCUS with positive high risk HPV cervical (Resolved) 01/21/17 Colpo bx: reactive atypia vs low grade changes. 2018 normal Pap. Recommend repeating Pap/HPV 2020. Bipolar affective disorder (Chronic) 2018 exacerbation of depression inpatient stay at [facility] Depression (Chronic) HIV (human immunodeficiency virus infection) (Chronic) well controlled. Mild cognitive impairment (Acute) Opioid abuse, in remission (Inactive) PTSD (post-traumatic stress disorder) (Acute) Surgical History Hx of tonsillectomy (Resolved) Family History Mother Bipolar 1 disorder Dementia Daughter Depression Social History Smoking/Tobacco Use Status: Never Alcohol Intake: former Drug use: Never Household members: none Housing: apartment Do you feel safe in your relationship?: No Additional Social history: in carebed Female Reproductive History Menstrual Menopause type: natural (Stopped OCPs in 2018. Amenorrhea since) Exam Narrative Exam Narrative: 1.Const: Well-nourished, Well-developed, appearing stated age 2.Eyes: PERRL, sluggish, no conjunctival injection, and symmetrical lids. 3.ENT: Atraumatic external nose and ears. Moist MM. Neck: Symmetric, trachea midline, No thyromegaly. Patient demonstrates good movement of cervical neck. There is no nuchal rigidity, no nuchal tenderness. Patient is able to flex the neck without any difficulty or significant pain. Negative Kernig's and Brudzinski sign. There is no evidence of raccoon eyes, vasquez sign, CSF rhinorrhea, mastoid tenderness, cranial crepitus, hemotympanum, exophthalmos, or hyphema. Patient demonstrates intact dentition with no signs of tooth avulsion or fracture, no signs of jaw deformity, no evidence of a LeFort's fracture, with an intact palate, nose and orbital region. There is no evidence of a nasal septal hematoma. No proptosis. Jaw closes symmetrically. Airway is clear. 4.CVS: +S1/S2, No murmurs or gallops. Peripheral pulses 2+ and equal in all extremities. Brisk capillary refill in all extremities. 5.RESP: Unlabored respiratory effort. Clear to auscultation bilaterally except for in the left lower lobe where there is some mild crackles. No other wheezes rales or rhonchi 6.GI: Soft, Nontender/Nondistended, No hepatosplenomegaly. No guarding or rebound. 7.MSK: Normocephalic/Atraumatic, Extremities w/o deformity or ttp No cyanosis or clubbing, Normal movement of all extremities 8.Skin: Warm, Dry. No rashes or lesions. 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 Sensation grossly intact, altered, difficulty with [id number], to be asterixis in both hands. No difficulty with rapid alternating movements. No facial droop. 10.Psych: ANO x1, slightly altered.GCS 15 Course Vital Signs Vital signs: Vital Signs Temperature 36.4 C L 01/25/20 07:58 Pulse 71 01/25/20 07:58 Respiratory Rate 17 01/25/20 07:58 Blood Pressure 115/72 01/25/20 07:58 Pulse Oximetry 97 01/25/20 07:58 Temperature 36.4 C L 01/25/20 07:58 Temperature Source Temporal Artery Scan 01/25/20 07:58 Pulse 71 01/25/20 07:58 Respiratory Rate 17 01/25/20 08:07 Respiratory Effort Non-Labored 01/25/20 08:07 Respiratory Depth Normal 01/25/20 08:07 Respiratory Pattern Normal 01/25/20 08:07 Blood Pressure 115/72 01/25/20 07:58 Pulse Oximetry 97 01/25/20 07:58 Oxygen Delivery Method Room Air 01/25/20 07:58 Oxygen Flow Rate 0 01/25/20 07:58 Pain Level 0 01/25/20 07:58
[2020-01-25] MEDS: Normal Saline 500 ML IV (08:25)
[2020-01-25 08:35] LABS: BE (Venous) -0.2 mmol/L (-3-3); HCO3 (Venous) 26 mmol/L (22-28); O2 Sat (Venous) 50 % (70-80); TCO2 (Venous) 24 mmol/L (22-29); pCO2 (Venous) 48 mm/Hg (34-47); pH (Venous) 7.34 (7.35-7.45); pO2 (Venous) 27 mm/Hg (28-44)
[2020-01-25 08:37] LABS: Abs Immature Grans 0.03 k/cumm (0.0-0.09); Absolute Basophil Count 0.02 k/cumm (0.0-0.2); Absolute Lymphocyte Count 2.02 k/cumm (1.2-3.4); Absolute Monocyte Count 0.73 k/cumm (0.11-0.7); Absolute Neutrophil Count 7.82 k/cumm (1.2-6.7); Basophils % 0.2; Eosinophils % 0.9; HCT 41.3 % (36.0-46.0); HGB 13.1 g/dL (12.0-15.5); Immature Grans % 0.3 %; Lymphocytes % 18.8; Mean Corp. HGB Concentration 31.7 g/dL (32.0-36.0); Mean Corpuscular Hemoglobin 32.7 pg (27.0-33.0); Mean Platelet Volume 9.9 fL (8.0-11.0); Monocytes % 6.8; Platelet Count 271 x1000/uL (130-400); RBC 4.01 m/cumm (4.00-5.20); RBC Distribution Width 13.4 % (11.7-14.6); White Blood Cell Count 10.72 k/cumm (4.4-10.8)
[2020-01-25 08:46] LABS: Ammonia 32 umol/L (11-32)
[2020-01-25 08:57] LABS: PTT Activated 25.9 sec (21.0-31.4); Prothrombin Time 9.9 sec (9.3-11.0)
[2020-01-25 08:57] LABS: Bilirubin Negative (Negative); Blood Trace-intact (Negative); Clarity Cloudy (Clear); Glucose Negative (Negative); Ketones Negative (Negative); Leukocyte Esterase Moderate (Negative); Nitrite Positive (Negative); Specific Gravity 1.025 (1.005-1.025); pH 6.5 (5-8)
[2020-01-25 09:02] LABS: ALT 14 U/L (14-59); AST 10 U/L (15-37); Albumin 3.4 g/dL (3.4-5.0); Alkaline Phosphatase 106 U/L (46-116); Anion Gap 7.4 mmol/L (3-11); BUN 11 mg/dL (7-18); Bilirubin, Total 0.9 mg/dL (0.2-1.0); CO2 26.6 mmol/L (21.0-32.0); CREATININE 1.08 mg/dL (0.55-1.02); Calcium 9.9 mg/dL (8.5-10.1); Chloride 103 mmol/L (98-107); Estimated GFR 52.87 (mL/min/1.73m2); Glucose 98 mg/dL (74-106); Potassium 3.6 mmol/L (3.5-5.1); Sodium 137 mmol/L (136-145); TSH (W/Ref FT4) 2.26 uIU/mL (0.36-3.74); Total Protein 8.2 g/dL (6.4-8.2)
[2020-01-25 09:14] LABS: Epithelial Cells Few HPF (Negative); Other Cells Rare Renal (Negative); RBC 0-2 HPF (0-2); WBC >50 HPF (0-5)
[2020-01-25 09:15] LABS: Bacteria Many HPF (Negative); C & S Indicated? Yes; Casts Negative LPF (Negative); Crystals Negative HPF (Negative); Mucus Moderate (Negative)
[2020-01-25 09:16] LABS: *AMPHETAMINES SCREEN URINE Negative (Negative); *BARBITURATES SCREEN URINE Negative (Negative); *BENZODIAZEPINES SCREEN URINE Negative (Negative); Cannabinoids THC Negative (Negative); Cocaine Screen,Urine Negative (Negative); METHADONE URINE SCREEN Negative (Negative); OPIATES URINE SCREEN Negative (Negative)
[2020-01-25 09:16] LABS: Troponin I < 0.05 ng/Ml (<0.06)
[2020-01-25 09:17] LABS: Tricyclic Antidepressants Negative (Negative)
[2020-01-25 09:17] LABS: ETHANOL BLOOD < 3.0 mg/dL (<3)
--- NOTE | 2020-01-25 09:22 | DI.CT_ITS ---
EXAM: CT HEAD WO CLINICAL HISTORY: altered TECHNIQUE: COMPARISON: No exams were available for comparison FINDINGS: Noncontrast cranial CT was performed. There is mild generalized cerebral atrophy and there are mild periventricular white matter areas of decreased attenuation consistent with microvascular ischemic ch mary, the findings are somewhat prominent for this age group. There is no evidence of acute intracra nial hemorrhage, mass effect, or midline shift. Motion artifact somewhat limits interpretation. The orbital and temporal bone structures appear intact and the visualized paranasal sinuses and masto id air cells appear clear. IMPRESSION: No evidence of acute intracranial process, somewhat limited scan due to motion artifact.
--- NOTE | 2020-01-25 09:28 | NUR.NOTE ---
Nursing Note: 0920--safety obserer in room to help orient pt
[2020-01-25] MEDS: cefTRIAXone 2 GM/50 ML BAG IVPB (09:29)
[2020-01-25 09:35] LABS: Acetaminophen < 2 ug/mL (10-30); Salicylate < 2.8 mg/dL (2.8-20.0)
[2020-01-25] MEDS: DOXYCYCLINE 100 MG in Normal Saline 100 ML IVPB (10:02)
[2020-01-25] MEDS: VANCOMYCIN 2,000 MG in Normal Saline 500 ML 250 MG IVPB (11:09)
[2020-01-25 11:16] LABS: Lithium 0.92 mmol/L (0.60-1.20)
[2020-01-25 11:22] LABS: VALPROIC ACID 92.9 ug/mL (50-100)
== END 2020-01-25 16:06 | disposition other institution (70) ==
LOC: ER 10:06
PROVIDERS: Nurse Practitioner Family; Emergency Provider Student in an Organized Health Care Education/Training Program; PCP Nurse Practitioner
DX: J18.8 Other pneumonia, unspecified organism (principal); N39.0 Urinary tract infection, site not specified; R41.82 Altered mental status, unspecified; B20 Human immunodeficiency virus [HIV] disease
CPT/HCPCS: 80053; 80307; 81025; 82805; 87077; 93005; 96361; 96365; 96366; 96367; 99285; 36600; 70450; 71046; 80164; 80178; 80320; 80329; 81003; 81015; 82140; 84443; 84484; 85025; 85610; 85730; 87086; 87186; 93010

== ENCOUNTER 2020-02-09 16:14 | Outpatient (REF) | payer MEDICAID, SELFPAY ==
[2020-02-09 18:51] LABS: Bilirubin Small (Negative); Blood Negative (Negative); Clarity Turbid (Clear); Glucose Negative (Negative); Ketones Trace mg/dL (Negative); Leukocyte Esterase Small (Negative); Nitrite Negative (Negative); Specific Gravity >= 1.030 (1.005-1.025); Urobilinogen 0.2 EU/dL (Up TO 0.2)
[2020-02-09 19:11] LABS: C & S Indicated? Yes; Crystals Many Amorphous HPF (Negative)
== END 2020-02-09 16:34 ==
LOC: NCHCN 16:14
PROVIDERS: PCP Nurse Practitioner; Visit Provider Physician Assistant
DX: R30.0 Dysuria (principal)
CPT/HCPCS: 81003; 81015; 87086

== ENCOUNTER 2020-02-29 04:39 | Outpatient (CLI) | payer MEDICAID, SELFPAY ==
[2020-02-29 09:27] LABS: Abs Immature Grans 0.01 k/cumm (0.0-0.09); Absolute Basophil Count 0.02 k/cumm (0.0-0.2); Absolute Eosinophil Count 0.29 k/cumm (0.0-0.7); Absolute Lymphocyte Count 1.57 k/cumm (1.2-3.4); Absolute Monocyte Count 0.34 k/cumm (0.11-0.7); Absolute Neutrophil Count 4.03 k/cumm (1.2-6.7); Basophils % 0.3; Eosinophils % 4.6; HCT 40.2 % (36.0-46.0); HGB 13.4 g/dL (12.0-15.5); Immature Grans % 0.2 %; Lymphocytes % 25.1; Mean Corp. HGB Concentration 33.3 g/dL (32.0-36.0); Mean Corpuscular Hemoglobin 33.3 pg (27.0-33.0); Monocytes % 5.4; Neutrophils % 64.4; Platelet Count 182 x1000/uL (130-400); RBC 4.02 m/cumm (4.00-5.20); RBC Distribution Width 12.9 % (11.7-14.6); White Blood Cell Count 6.26 k/cumm (4.4-10.8)
[2020-02-29 09:37] LABS: VALPROIC ACID 45.3 ug/mL (50-100)
[2020-02-29 10:33] LABS: ALT 17 U/L (14-59); AST 16 U/L (15-37); Albumin 3.5 g/dL (3.4-5.0); Alkaline Phosphatase 68 U/L (46-116); Anion Gap 6.1 mmol/L (3-11); BUN 14 mg/dL (7-18); Bilirubin, Total 0.3 mg/dL (0.2-1.0); CO2 27.9 mmol/L (21.0-32.0); CREATININE 0.92 mg/dL (0.55-1.02); Chloride 105 mmol/L (98-107); Glucose 89 mg/dL (74-106); Potassium 4.2 mmol/L (3.5-5.1); Sodium 139 mmol/L (136-145)
== END 2020-02-29 04:59 ==
PROVIDERS: PCP Nurse Practitioner; Visit Provider Nurse Practitioner Family
DX: F31.4 Bipolar disorder, current episode depressed, severe, without psychotic features (principal); Z79.899 Other long term (current) drug therapy; Z51.81 Encounter for therapeutic drug level monitoring
CPT/HCPCS: 36415; 80053; 80164; 85025

== ENCOUNTER 2020-04-18 03:02 | Outpatient (CLI) | payer MEDICAID, SELFPAY ==
[2020-04-18 09:56] LABS: Abs Immature Grans 0.01 k/cumm (0.0-0.09); Absolute Basophil Count 0.02 k/cumm (0.0-0.2); Absolute Eosinophil Count 0.18 k/cumm (0.0-0.7); Absolute Lymphocyte Count 1.67 k/cumm (1.2-3.4); Absolute Monocyte Count 0.29 k/cumm (0.11-0.7); Absolute Neutrophil Count 3.58 k/cumm (1.2-6.7); Basophils % 0.3; Eosinophils % 3.1; HCT 42.4 % (36.0-46.0); HGB 13.6 g/dL (12.0-15.5); Immature Grans % 0.2 %; Mean Corp. HGB Concentration 32.1 g/dL (32.0-36.0); Mean Corpuscular Hemoglobin 32.1 pg (27.0-33.0); Mean Platelet Volume 10.2 fL (8.0-11.0); Neutrophils % 62.4; Platelet Count 226 x1000/uL (130-400); RBC 4.24 m/cumm (4.00-5.20); RBC Distribution Width 12.6 % (11.7-14.6); White Blood Cell Count 5.75 k/cumm (4.4-10.8)
[2020-04-18 11:27] LABS: ALT 11 U/L (14-59); AST 12 U/L (15-37); Albumin 3.6 g/dL (3.4-5.0); Alkaline Phosphatase 90 U/L (46-116); Anion Gap 8.3 mmol/L (3-11); BUN 16 mg/dL (7-18); Bilirubin, Total 0.4 mg/dL (0.2-1.0); CO2 27.7 mmol/L (21.0-32.0); CREATININE 0.91 mg/dL (0.55-1.02); Calcium 9.5 mg/dL (8.5-10.1); Chloride 105 mmol/L (98-107); Glucose 85 mg/dL (74-106); Potassium 4.3 mmol/L (3.5-5.1); Sodium 141 mmol/L (136-145); Total Protein 7.1 g/dL (6.4-8.2)
[2020-04-19 14:52] LABS: CD3 74 % (62-87); CD4 42 % (35-63); CD8 31 % (10-35)
[2020-04-20 14:56] LABS: HIV 1 RNA Qualitative Undetected (Undetected)
== END 2020-04-18 03:22 ==
PROVIDERS: Internal Medicine Infectious Disease; PCP Nurse Practitioner; Visit Provider Nurse Practitioner Family
DX: B20 Human immunodeficiency virus [HIV] disease (principal); Z79.899 Other long term (current) drug therapy
CPT/HCPCS: 36415; 80053; 87536; 85025; 86359; 86360

== ENCOUNTER 2020-07-19 10:04 | Outpatient (REF) | payer MEDICAID, SELFPAY ==
[2020-07-19 19:55] LABS: Bilirubin Negative (Negative); Blood Large (Negative); Glucose Negative (Negative); Ketones Negative (Negative); Leukocyte Esterase Moderate (Negative); Nitrite Negative (Negative); Specific Gravity >= 1.030 (1.005-1.025); Urobilinogen 0.2 EU/dL (Up TO 0.2)
[2020-07-19 19:56] LABS: Clarity Cloudy (Clear)
[2020-07-19 20:08] LABS: Bacteria Many HPF (Negative); Casts Negative LPF (Negative); Crystals Few Calcium Oxalate HPF (Negative); Epithelial Cells Few HPF (Negative); Mucus Negative (Negative); WBC 20-50 HPF (0-5)
[2020-07-19 20:09] LABS: C & S Indicated? Yes
== END 2020-07-19 10:24 ==
LOC: NCHCN 10:04
PROVIDERS: PCP Nurse Practitioner; Visit Provider Nurse Practitioner
DX: N39.0 Urinary tract infection, site not specified (principal)
CPT/HCPCS: 81003; 81015; 87086

== ENCOUNTER 2020-09-18 11:17 | Outpatient (CLI) | payer MEDICAID, SELFPAY ==
--- NOTE | 2020-09-18 11:29 | CCCE_ITS ---
Date of service: 09/18/20 Time of Service: 11:43 [facility] Note Note: CC: I have been feeling well. I don't go anywhere. I wear a mask. My [facility] worker comes to see me everyday. I have been taking my pills. HPI: Diann is here for a check in. She had a follow up with Dr. Santoyo via secure tele-health last week. She is here for vital signs and an status check as well as getting a flu vaccine. ROS: Denies Fever, chills, night sweats, sore throat, cough, GI disturbance and states she fels her bipolar disorder is stable with the current medications her psychiatrist is giving her. NKDA, No history of immunization reaction Medications incluse: Atorvastatin 20mg q PM Benztropine 1 mg bid Vitamin D3 2000 iu daily clonazepam 0.5mg bid prn Descovy 1 tab daily Depakote ER 500mg bid docusate sodium 100mg bid [place] Carbonate 300mg ER tab q HS [place] Carbonate 450mg ER tab q HS omeprazole 20 mg daily Reserdal 3 mg bid sertraline 200mg daily Tivicay 1 tab daily toprimate 25 mg bid valacyclovir 500mg daily zolpidem 5 mg q HS Update to Social Histroy: She is continuing to live in her own apartment on [address] in [place]. Her daughter, Nivia lives a few blocks away and she talks with her on the phone but does not se her much due to Covid. She has wrap around care through [facility] with the RNs pouring her medications into med boxes and keeping track of her need for refills. She has a director case management and day workers who help her on a daily bases. So far she has remained stable. her last long-term psychiatric hospitalization was last summer. Objective: T: 97.8, P: 70, R: 16 BP 128/74, weight 212# AINAD, AAOx3, skin W/D free of rash Non icteric pharynx clear neck supple, no adenopathy chest clear in all lobes no edema Psych: Appearance: well groomed Eye Contact: Fair Attitude: Cooperative Speech: Clear. coherent, speaking in full but clipped sentences Affect: flat Mood: euthymic Memory: intact Motor Activity: intention tremor A/P HIV - undectable by lab pcr long-term. No change in plan for follow up or medications. F/U w Dr. Santoyo of ID in February 2021, sooner prn. Immunization: Influenza Vaccine administered IM R arm. Fluaval Quadravalent, [employer] Lot # [id number], Exp date: 03/28/2021. Sirisha Edwards NP, 09/18/2020
== END 2020-09-18 11:37 ==
PROVIDERS: PCP Nurse Practitioner; Visit Provider Nurse Practitioner Family
DX: B20 Human immunodeficiency virus [HIV] disease (principal); Z23 Encounter for immunization
CPT/HCPCS: 90471; 90686; 99213

== ENCOUNTER 2021-01-10 03:14 | Outpatient (CLI) | payer MEDICAID, SELFPAY ==
[2021-01-10 09:43] LABS: Abs Immature Grans 0.02 10^3/uL (0.0-0.06); Absolute Basophil Count 0.02 10^3/uL (0.0-0.2); Absolute Eosinophil Count 0.14 10^3/uL (0.0-0.7); Absolute Lymphocyte Count 2.04 10^3/uL (1.2-3.4); Absolute Neutrophil Count 3.03 10^3/uL (1.2-6.7); Basophils % 0.4; Eosinophils % 2.5; HCT 41.4 % (36.0-46.0); HGB 13.6 g/dL (11.2-15.7); Immature Grans % 0.4; Lymphocytes % 36.8; MCH 33.3 pg (27.0-33.0); MCHC 32.9 % (32.0-36.0); MCV 101.2 fL (80-95); MPV 10.3 fL (8.0-11.0); Monocytes % 5.4; Neutrophils % 54.5; Nucleated RBC 0 %; Platelet Count 181 10^3/uL (130-400); RBC 4.09 10^6/uL (3.93-5.22); RDW 12.4 % (11.7-14.6); RDW-SD 46.4 fL; WBC 5.55 10^3/uL (4.4-10.8)
[2021-01-10 10:38] LABS: ALT 13 U/L (14-59); AST 16 U/L (15-37); Albumin 3.6 g/dL (3.4-5.0); Alkaline Phosphatase 76 U/L (46-116); Anion Gap 8.8 mmol/L (3-11); BUN 14 mg/dL (7-18); Bilirubin, Total 0.4 mg/dL (0.2-1.0); CO2 29.2 mmol/L (21.0-32.0); CREATININE 0.9 mg/dL (0.55-1.02); Calcium 9.4 mg/dL (8.5-10.1); Calculated LDL 100 mg/dL (<100); Chloride 106 mmol/L (98-107); Cholesterol 180 mg/dL (<200); Glucose 101 mg/dL (74-106); HDL Cholesterol 50 mg/dL (40-60); Potassium 4.5 mmol/L (3.5-5.1); Sodium 144 mmol/L (136-145); Total Protein 7.1 g/dL (6.4-8.2); Triglyceride 150 mg/dL (<150)
[2021-01-11 14:51] LABS: HIV 1 RNA Qualitative Detected copies/mL (Undetected); HIV 1 RNA Quantitative <20 copies/mL (Undetected)
== END 2021-01-10 03:15 | disposition home or self-care (01) ==
LOC: LBO 03:14
PROVIDERS: Internal Medicine Infectious Disease; PCP Nurse Practitioner; Visit Provider Nurse Practitioner Family
DX: B20 Human immunodeficiency virus [HIV] disease (principal); Z79.899 Other long term (current) drug therapy
CPT/HCPCS: 36415; 80053; 80061; 87536; 85025; 86359; 86360

== ENCOUNTER 2021-01-16 02:44 | Outpatient (CLI) | payer MEDICAID, SELFPAY ==
[2021-01-16 10:59] LABS: Abs Immature Grans 0.01 10^3/uL (0.0-0.06); Absolute Basophil Count 0.01 10^3/uL (0.0-0.2); Absolute Eosinophil Count 0.12 10^3/uL (0.0-0.7); Absolute Lymphocyte Count 1.65 10^3/uL (1.2-3.4); Absolute Monocyte Count 0.34 10^3/uL (0.1-0.8); Absolute Neutrophil Count 3.68 10^3/uL (1.2-6.7); Basophils % 0.2; Eosinophils % 2.1; HCT 40.1 % (36.0-46.0); HGB 13.3 g/dL (11.2-15.7); Immature Grans % 0.2; Lymphocytes % 28.4; MCH 33.3 pg (27.0-33.0); MCHC 33.2 % (32.0-36.0); MCV 100.3 fL (80-95); Monocytes % 5.9; Neutrophils % 63.2; Nucleated RBC 0 %; Platelet Count 179 10^3/uL (130-400); RDW 12.4 % (11.7-14.6); WBC 5.81 10^3/uL (4.4-10.8)
[2021-01-17 15:49] LABS: CD3 70 % (62-87); CD4 39 % (35-63); CD8 32 % (10-35)
== END 2021-01-16 02:45 | disposition home or self-care (01) ==
LOC: LBO 02:44
PROVIDERS: PCP Nurse Practitioner; Visit Provider Internal Medicine Infectious Disease
DX: B20 Human immunodeficiency virus [HIV] disease (principal); Z79.899 Other long term (current) drug therapy
CPT/HCPCS: 36415; 85025; 86359; 86360

== ENCOUNTER 2021-05-25 13:09 | Emergency (ER) | payer MEDICAID, SELFPAY ==
[2021-05-25 13:31] VITALS: BP 118/82; PULSE 80; RESP 16; TEMP 37.1; O2SAT 94
--- NOTE | 2021-05-25 13:32 | ED.GENADUL_ITS ---
Discharge Plan Disposition Patient Disposition: HOME Condition: Stable Discharge Details Clinical Impression: Medical clearance for psychiatric admission, UTI (urinary tract infection) Primary Care Provider: Sondra Lennon ED Provider: Annette Brian Home Meds and New Rx's Prescriptions: New cephalexin 500 mg tablet 500 mg PO BID 7 Days Qty: 14 RF: 0 Continued omeprazole 20 mg capsule,delayed release(DR/EC) 20 mg PO DAILY RF: 0 docusate sodium [Colace] 100 mg capsule 100 mg PO BID RF: 0 valacyclovir [Valtrex] 500 mg tablet 500 mg PO DAILY RF: 0 cholecalciferol (vitamin D3) [Vitamin D3] 2,000 UNIT capsule 2,000 unit PO DAILY RF: 0 sertraline 100 mg tablet 200 mg PO DAILY RF: 0 lithium carbonate 450 mg tablet extended release 450 mg PO HS RF: 0 lithium carbonate 300 mg tablet extended release 300 mg PO HS RF: 0 clonazepam [Klonopin] 0.5 mg tablet 0.5 mg PO BID PRNRF: 0 Tivicay 50 MG tablet 1 tab PO DAILY RF: 0 acetaminophen 325 mg Tablet 650 mg PO Q6H PRN PRNRF: 0 atorvastatin 20 mg tablet 20 mg PO .QPM RF: 0 topiramate 25 mg tablet 25 mg PO BID RF: 0 risperidone [Risperdal] 3 mg tablet 3 mg PO BID RF: 0 divalproex [Depakote ER] 500 mg tablet extended release 24 hr 500 mg PO BID RF: 0 benztropine 1 mg tablet 1 mg PO BID RF: 0 zolpidem [Ambien] 5 mg tablet 5 mg PO HS RF: 0 Descovy 1 EACH tablet 1 tab PO DAILY RF: 0 Discharge Instructions Instructions: Urinary Tract Infection in Women (ED), Medical Clearance for Psychiatric Care (ED) Additional Instructions: The eurinalysis does show evidence for a urinary tract infection. Please take the antibiotics twice daily as prescribed. At this time labs, and Covid, and obtained for medical clearance. You have been deemed medically clear. Please follow up with DAVID as previously planned and discussed. Referrals: Sondra Lennon [Primary Care Provider] - Medical Decision Making 56 year old female who has a history of HIV, Bipolar, PTSD, Depression presents for medical clearance evaluation to be admitted to a care bed. Patient has no complaints of pain, fever, or chills. She reports she had a covid swab this am but it is not found in our system. VSS. Physical exam is benign. Physical exam is benign, rapid Covid test ordered. 1347: Call made to EFREN MELENDEZ regarding clarification of medical clearance needs, no answer left voicemail. Basic labs, Urinalysis ordered. CBC, CMp WNL, UA shows positive nitrites and moderate leukocytes, 20-50 WBC's. Culture pending. Will place patient on cephalexin for UTI. Informed of plan, verbalized understanding. Prescription written and informed [facility]ES of UTI. Patient transported by [facility]ES to care bed. HPI General Mode of arrival: ambulatory . Date/Time Provider Initiated Documentation: 05/25/21 13:11 . Limitations to Documentation: no limitations . Information obtained by: patient . HPI Narrative: 56 year old female who has a history of HIV, Bipolar, PTSD, Depression presents for medical clearance evaluation to be admitted to a care bed. Patient has no complaints of pain, fever, or chills. She reports she had a covid swab this am but it is not found in our system. VSS. Physical exam is benign. Related Data Home Medications Medication Instructions Recorded Confirmed Tivicay 1 tab PO DAILY 07/18/16 01/25/20 cholecalciferol (vitamin D3) 2,000 unit PO DAILY 01/21/17 01/25/20 [Vitamin D3] Descovy 1 tab PO DAILY 03/26/18 01/25/20 clonazepam 0.5 mg tablet 0.5 mg PO BID PRN 01/06/19 01/25/20 lithium carbonate 300 mg 300 mg PO HS tab 01/06/19 08/19/19 tablet,extended release lithium carbonate 450 mg 450 mg PO HS tab 01/06/19 08/19/19 tablet,extended release sertraline 100 mg tablet 200 mg PO DAILY 01/06/19 01/25/20 docusate sodium 100 mg capsule 100 mg PO BID 02/02/19 01/25/20 omeprazole 20 mg capsule,delayed 20 mg PO DAILY 02/02/19 01/25/20 release valacyclovir 500 mg tablet 500 mg PO DAILY 04/26/19 01/25/20 acetaminophen 650 mg PO Q6H PRN PRN 01/25/20 01/25/20 atorvastatin 20 mg PO .QPM 01/25/20 01/25/20 benztropine 1 mg PO BID 01/25/20 01/25/20 divalproex [Depakote ER] 500 mg PO BID 01/25/20 01/25/20 risperidone [Risperdal] 3 mg PO BID 01/25/20 01/25/20 topiramate 25 mg PO BID 01/25/20 01/25/20 zolpidem [Ambien] 5 mg PO HS 01/25/20 01/25/20 cephalexin 500 mg PO BID 7 Days #14 tab 05/25/21 Previous Rx's Medication Instructions Recorded cephalexin 500 mg PO BID 7 Days #14 tab 05/25/21 Allergies Allergy/AdvReac Type Severity Reaction Status Date / Time No Known Allergies Allergy Unverified 05/25/21 13:33 General DIANA: 2 Review of Systems All systems reviewed & are unremarkable except as noted in HPI and below PFSH Medical History (Updated 05/25/21 @ 15:55 by Annette Brian) Alcohol abuse, in remission ASCUS with positive high risk HPV cervical 01/21/17 Colpo bx: reactive atypia vs low grade changes. 2018 normal Pap. Recommend repeating Pap/HPV 2020. Bipolar affective disorder 2018 exacerbation of depression inpatient stay at [facility] – [place], [place] Depression HIV (human immunodeficiency virus infection) well controlled. Mild cognitive impairment Opioid abuse, in remission PTSD (post-traumatic stress disorder) Surgical History Hx of tonsillectomy Family History Mother Bipolar 1 disorder Dementia Daughter Depression Social History Smoking/Tobacco Use Status: Never Smoking risk assessment performed?: Yes Alcohol Intake: never Drug use: Never Substance use type: does not use Household members: none Housing: apartment Do you feel safe at home: Yes (not when i'm alone though) Female Reproductive History Menstrual Menopause type: natural (Stopped OCPs in 2018. Amenorrhea since) Exam Const General: cooperative, comfortable and well developed Nutritional Appearance: average body habitus and well nourished Orientation: alert, awake and oriented x3 HENMT Head: normal to inspection, no palpable skull fracture and normocephalic Ears: external ears normal General nose exam: external nose normal Face and sinus: normal facial exam Mouth: oral mucosae normal Resp Effort & Inspection: normal respiratory effort Auscultation: clear to auscultation bilaterally Cardio Rate: regular rate Rhythm: regular rhythm Heart Sounds: S1 normal, S2 normal, no gallops, no murmurs and no rubs GI Inspection: normal to inspection Palpation: soft and no hepatosplenomegaly Auscultation: normal bowel sounds Neuro General: patient alert, patient awake and patient oriented x3 Cranial Nerves: CN's II-XI intact bilaterally Speech: speech normal
[2021-05-25 13:52] LABS: Source Nasal/Nares
[2021-05-25 14:16] LABS: Abs Immature Grans 0.02 10^3/uL (0.0-0.06); Absolute Basophil Count 0.02 10^3/uL (0.0-0.2); Absolute Eosinophil Count 0.09 10^3/uL (0.0-0.7); Absolute Lymphocyte Count 1.84 10^3/uL (1.2-3.4); Absolute Monocyte Count 0.28 10^3/uL (0.1-0.8); Absolute Neutrophil Count 3.67 10^3/uL (1.2-6.7); Basophils % 0.3; Eosinophils % 1.5; HCT 39.1 % (36.0-46.0); Immature Grans % 0.3; Lymphocytes % 31.1; MCH 32.6 pg (27.0-33.0); MCHC 33.2 % (32.0-36.0); MPV 9.8 fL (8.0-11.0); Monocytes % 4.7; Neutrophils % 62.1; Nucleated RBC 0 %; Platelet Count 190 10^3/uL (130-400); RBC 3.99 10^6/uL (3.93-5.22); RDW 12.2 % (11.7-14.6); RDW-SD 44.3 fL; WBC 5.92 10^3/uL (4.4-10.8)
--- NOTE | 2021-05-25 14:39 | NUR.NOTE ---
Nursing Note: Care assumed from Rory VALADEZ at this time. I have introduced my self to the patient. She reports that recently she has been experiencing a lot of anxiety related to Suicidal thoughts. Reports previous history of suicide attempts. Most recently in 2001. Denied Homicidal thoughts. ED provider made aware. Currently waiting for care bed with crisis center. Transportation provided by [facility].
[2021-05-25 14:40] LABS: ALT 16 U/L (14-59); AST 16 U/L (15-37); Albumin 3.6 g/dL (3.4-5.0); Alkaline Phosphatase 73 U/L (46-116); Anion Gap 7.7 mmol/L (3-11); BUN 14 mg/dL (7-18); Bilirubin, Total 0.4 mg/dL (0.2-1.0); CO2 27.3 mmol/L (21.0-32.0); Calcium 9.4 mg/dL (8.5-10.1); Chloride 104 mmol/L (98-107); Estimated GFR 57.56 (mL/min/1.73m2); Glucose 89 mg/dL (74-106); Potassium 4.3 mmol/L (3.5-5.1); Sodium 139 mmol/L (136-145); Total Protein 7.5 g/dL (6.4-8.2)
[2021-05-25 14:42] LABS: ETHANOL BLOOD < 3.0 mg/dL (<3)
[2021-05-25 14:46] VITALS: BP 149/99; PULSE 72; RESP 16; O2SAT 98
--- NOTE | 2021-05-25 14:47 | NUR.NOTE ---
Nursing Note:Per ED provider. No sitter needed at this time.
[2021-05-25 15:06] LABS: COVID-19 PCR Negative (Negative)
[2021-05-25 15:38] LABS: Bilirubin Negative (Negative); Blood Trace-intact (Negative); Clarity Cloudy (Clear); Glucose Negative (Negative); Ketones Negative (Negative); Leukocyte Esterase Moderate (Negative); Nitrite Positive (Negative); Specific Gravity 1.025 (1.005-1.025); Urobilinogen 0.2 EU/dL (Up TO 0.2)
[2021-05-25 15:44] LABS: Bacteria Many HPF (Negative); C & S Indicated? Yes; Casts Negative LPF (Negative); Crystals Negative HPF (Negative); Epithelial Cells Few HPF (Negative); Mucus Negative (Negative); RBC 0-2 HPF (0-2); WBC 20-50 HPF (0-5)
[2021-05-25 15:45] LABS: *AMPHETAMINES SCREEN URINE Negative (Negative); *BARBITURATES SCREEN URINE Negative (Negative); *BENZODIAZEPINES SCREEN URINE Negative (Negative); Cannabinoids THC Negative (Negative); Cocaine Screen,Urine Negative (Negative); METHADONE URINE SCREEN Negative (Negative); OPIATES URINE SCREEN Negative (Negative)
[2021-05-25 15:47] LABS: Tricyclic Antidepressants Negative (Negative)
[2021-05-25] MEDS: Cephalexin 500 MG CAP, 4 CAPS/BTL PO (16:11)
[2021-05-25] MEDS: Cephalexin 500 MG CAP PO (16:11)
== END 2021-05-25 16:09 | disposition home or self-care (01) ==
PROVIDERS: Emergency Provider Registered Nurse Emergency; PCP Nurse Practitioner
DX: N39.0 Urinary tract infection, site not specified (principal); B96.20 Unspecified Escherichia coli [E. coli] as the cause of diseases classified elsewhere; F31.9 Bipolar disorder, unspecified; Z20.822 Contact with and (suspected) exposure to COVID-19; Z03.818 Encounter for observation for suspected exposure to other biological agents ruled out
CPT/HCPCS: 36415; 80053; 80307; 87077; 87635; 99283; 80320; 81003; 81015; 85025; 87086; 87186

== ENCOUNTER 2021-07-19 02:46 | Outpatient (CLI) | payer MEDICAID, SELFPAY ==
[2021-07-19 13:25] LABS: Abs Immature Grans 0.03 10^3/uL (0.0-0.06); Absolute Basophil Count 0.02 10^3/uL (0.0-0.2); Absolute Eosinophil Count 0.09 10^3/uL (0.0-0.7); Absolute Lymphocyte Count 2.24 10^3/uL (1.2-3.4); Absolute Monocyte Count 0.37 10^3/uL (0.1-0.8); Absolute Neutrophil Count 3.91 10^3/uL (1.2-6.7); Basophils % 0.3; Eosinophils % 1.4; HCT 40.7 % (36.0-46.0); HGB 13.6 g/dL (11.2-15.7); Immature Grans % 0.5; Lymphocytes % 33.6; MCH 32.7 pg (27.0-33.0); MCHC 33.4 % (32.0-36.0); MCV 97.8 fL (80-95); MPV 9.7 fL (8.0-11.0); Monocytes % 5.6; Neutrophils % 58.6; Nucleated RBC 0 %; Platelet Count 223 10^3/uL (130-400); RBC 4.16 10^6/uL (3.93-5.22); RDW-SD 43.5 fL; WBC 6.66 10^3/uL (4.4-10.8)
[2021-07-19 13:36] LABS: VALPROIC ACID 33.2 ug/mL
[2021-07-19 13:54] LABS: Hemoglobin A1C 5.1 % (<5.7)
[2021-07-19 14:23] LABS: ALT 19 U/L (14-59); AST 16 U/L (15-37); Albumin 4.1 g/dL (3.4-5.0); Alkaline Phosphatase 81 U/L (46-116); Anion Gap 8.9 mmol/L (3-11); BUN 14 mg/dL (7-18); Bilirubin, Total 0.5 mg/dL (0.2-1.0); CO2 30.1 mmol/L (21.0-32.0); CREATININE 0.9 mg/dL (0.55-1.02); Calcium 9.7 mg/dL (8.5-10.1); Chloride 104 mmol/L (98-107); Glucose 91 mg/dL (74-106); Potassium 4.2 mmol/L (3.5-5.1); Sodium 143 mmol/L (136-145); Total Protein 7.6 g/dL (6.4-8.2)
[2021-07-19 14:45] LABS: Vitamin D 25 Total 41.9 ng/mL (30-100)
[2021-07-19 14:49] LABS: Calculated LDL 160 mg/dL (<100); Cholesterol 239 mg/dL (<200); Ferritin 141 ng/mL (8-252); HDL Cholesterol 61 mg/dL (40-60); Magnesium 1.8 mg/dL (1.8-2.4); TSH 1.38 uIU/mL (0.36-3.74); Triglyceride 90 mg/dL (<150); Vitamin B12 475 pg/mL (193-986)
[2021-07-19 15:42] LABS: C-Reactive Protein 0.55 mg/dL (0.0-0.3); FREE T4 0.75 ng/dL (0.76-1.46)
[2021-07-19 22:13] LABS: T3,Free 3.8 pg/mL (2.8-5.3)
[2021-07-23 12:45] LABS: HIV 1 RNA Qualitative Undetected copies/mL (Undetected)
== END 2021-07-19 02:47 | disposition home or self-care (01) ==
LOC: LBO 02:47
PROVIDERS: Psychiatry & Neurology Psychiatry; PCP Nurse Practitioner; Visit Provider Nurse Practitioner Family
DX: B20 Human immunodeficiency virus [HIV] disease (principal); Z79.899 Other long term (current) drug therapy; F31.4 Bipolar disorder, current episode depressed, severe, without psychotic features
CPT/HCPCS: 36415; 80053; 80061; 82306; 87536; 80164; 82607; 82728; 82746; 83036; 83735; 84439; 84443; 84481; 85025; 86140

== ENCOUNTER 2021-07-23 09:30 | Outpatient (CLI) | payer MEDICAID, SELFPAY ==
--- NOTE | 2021-07-23 14:16 | CCCE_ITS ---
Date of service: 07/23/21 Time of Service: 09:28 [facility] Clinic Note Note: Luna is driven to clinic today by her nurse case management from [facility] to have a ZOOM follow up appointment here with Dr. Santoyo who was at the [facility] ID clinic. This visit did take place. Corrina is due for menactra#2 vaccine and also a Flu vaccine injection. 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
--- NOTE | 2021-07-23 14:16 | W.CCNOTE ---
Date of service: 07/23/21 Time of Service: 09:28 Comprehensive Care Clinic Note Note: Luna is driven to clinic today by her case planner from [facility] to have a ZOOM follow up appointment here with Dr. Santoyo who was at the [facility] ID clinic. This visit did take place. Corrina is due for menactra#2 vaccine and also a Flu vaccine injection. 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
== END 2021-07-23 09:31 | disposition home or self-care (01) ==
LOC: CCC 14:14
PROVIDERS: PCP Nurse Practitioner; Visit Provider Nurse Practitioner Family
DX: B20 Human immunodeficiency virus [HIV] disease (principal); Z79.899 Other long term (current) drug therapy; Z23 Encounter for immunization
CPT/HCPCS: 90471; 90472; 90686; 90734

== ENCOUNTER 2021-11-13 13:00 | Outpatient (REF) | payer MEDICAID, SELFPAY | END 2021-11-13 13:01 | disposition home or self-care (01) | LOC: NCHCN 13:00 | PROVIDERS: PCP Nurse Practitioner; Visit Provider Nurse Practitioner Family | DX: R32 Unspecified urinary incontinence (principal) | CPT/HCPCS: 87086 ==

== ENCOUNTER 2021-11-13 15:26 | Outpatient (REF) | payer MEDICAID, SELFPAY ==
[2021-11-13 21:18] LABS: HCT 39.8 % (36.0-46.0); HGB 12.9 g/dL (11.2-15.7); MCH 31.2 pg (27.0-33.0); MCHC 32.4 % (32.0-36.0); MCV 96.1 fL (80-95); MPV 11.2 fL (8.0-11.0); Platelet Count 217 10^3/uL (130-400); RBC 4.14 10^6/uL (3.93-5.22); RDW 12.6 % (11.7-14.6); RDW-SD 44.8 fL; WBC 6.36 10^3/uL (4.4-10.8)
[2021-11-13 21:47] LABS: VALPROIC ACID 50.7 ug/mL
[2021-11-13 22:21] LABS: ALT 12 U/L (14-59); AST 11 U/L (15-37); Albumin 3.8 g/dL (3.4-5.0); Alkaline Phosphatase 75 U/L (46-116); Anion Gap 8.8 mmol/L (3-11); BUN 15 mg/dL (7-18); Bilirubin, Total 0.3 mg/dL (0.2-1.0); CO2 27.2 mmol/L (21.0-32.0); CREATININE 0.7 mg/dL (0.55-1.02); Calcium 9.4 mg/dL (8.5-10.1); Chloride 106 mmol/L (98-107); Glucose 87 mg/dL (74-106); Potassium 4.6 mmol/L (3.5-5.1); Sodium 142 mmol/L (136-145); TSH 0.93 uIU/mL (0.36-3.74); Total Protein 7.2 g/dL (6.4-8.2)
== END 2021-11-13 15:27 | disposition home or self-care (01) ==
LOC: NCHCN 15:26
PROVIDERS: PCP Nurse Practitioner; Visit Provider Nurse Practitioner Family
DX: E78.5 Hyperlipidemia, unspecified (principal); F31.60 Bipolar disorder, current episode mixed, unspecified; B20 Human immunodeficiency virus [HIV] disease; E66.9 Obesity, unspecified; Z51.81 Encounter for therapeutic drug level monitoring; Z79.899 Other long term (current) drug therapy
CPT/HCPCS: 80053; 85027; 80164; 84443

== ENCOUNTER 2022-01-04 14:14 | Outpatient (REF) | payer MEDICAID, SELFPAY ==
--- NOTE | 2022-01-04 14:05 | PAPFT_PTH ---
PATIENT: Diann Orta LOC: [facility]#:[id number] AGE/SX: 57/F ROOM: RE01/04/[address]: Linda Marquez : 1965 BED: DIS: 01/04/2022 SPEC #: [id number] RECD: 01/04/22 17:14 STATUS: SHAYLA REShayan #: [id number] WALKER: 01/04/22 14:[address]: Linda Marquez DEPT: [facility] Cytology RECD BY: Lisa Espinoza ENTERED: 01/04/22 17:15 SP TYPE: PAPFT OTHR DR: Sondra Lennon Tissues: 1 - CX/ENDOCX FOR PAP SMEARS Procedures: PAP THIN PREP/UVM Screening HPV DNA PROBE Comments: [id number]
== END 2022-01-04 14:15 | disposition home or self-care (01) ==
LOC: LBN 14:14
PROVIDERS: PCP Nurse Practitioner; Visit Provider Obstetrics & Gynecology Gynecology
DX: N89.8 Other specified noninflammatory disorders of vagina (principal); Z12.4 Encounter for screening for malignant neoplasm of cervix; Z11.51 Encounter for screening for human papillomavirus (HPV)
CPT/HCPCS: 88142; 87480; 87510; 87624; 87660

== ENCOUNTER 2022-01-16 03:00 | Outpatient (CLI) | payer MEDICAID, SELFPAY ==
[2022-01-16 10:45] LABS: Abs Immature Grans 0.03 10^3/uL (0.0-0.06); Absolute Basophil Count 0.03 10^3/uL (0.0-0.2); Absolute Eosinophil Count 0.13 10^3/uL (0.0-0.7); Absolute Lymphocyte Count 2.01 10^3/uL (1.2-3.4); Absolute Monocyte Count 0.46 10^3/uL (0.1-0.8); Absolute Neutrophil Count 5.96 10^3/uL (1.2-6.7); Basophils % 0.3; Eosinophils % 1.5; HCT 40.4 % (36.0-46.0); HGB 13.5 g/dL (11.2-15.7); Immature Grans % 0.3; Lymphocytes % 23.3; MCH 31.7 pg (27.0-33.0); MCHC 33.4 % (32.0-36.0); MCV 94.8 fL (80-95); Monocytes % 5.3; Neutrophils % 69.3; Platelet Count 206 10^3/uL (130-400); RBC 4.26 10^6/uL (3.93-5.22); RDW 12.1 % (11.7-14.6); RDW-SD 42.3 fL; WBC 8.62 10^3/uL (4.4-10.8)
[2022-01-16 11:39] LABS: ALT 16 U/L (14-59); AST 16 U/L (15-37); Albumin 3.7 g/dL (3.4-5.0); Alkaline Phosphatase 98 U/L (46-116); Anion Gap 7.1 mmol/L (3-11); BUN 13 mg/dL (7-18); Bilirubin, Total 0.4 mg/dL (0.2-1.0); CO2 30.9 mmol/L (21.0-32.0); CREATININE 0.8 mg/dL (0.55-1.02); Calcium 9.4 mg/dL (8.5-10.1); Calculated LDL 118 mg/dL (<100); Chloride 103 mmol/L (98-107); Cholesterol 202 mg/dL (<200); Glucose 97 mg/dL (74-106); HDL Cholesterol 53 mg/dL (40-60); Potassium 4.5 mmol/L (3.5-5.1); Sodium 141 mmol/L (136-145); Total Protein 7.3 g/dL (6.4-8.2); Triglyceride 159 mg/dL (<150)
[2022-01-17 11:13] LABS: HIV 1 RNA Qualitative Detected copies/mL (Undetected); HIV 1 RNA Quantitative <20 copies/mL (Undetected)
[2022-01-17 14:19] LABS: 4/8 Ratio 1.17 (>=0.90); Absolute CD3 1484 Cells/uL (840-2,669); Absolute CD8 681 Cells/uL (154-1,097); CD3 74 % (56-84); CD4 40 % (31-64); CD8 34 % (9-39)
== END 2022-01-16 03:01 | disposition home or self-care (01) ==
LOC: LBO 03:00
PROVIDERS: PCP Nurse Practitioner; Visit Provider Nurse Practitioner Family
DX: B20 Human immunodeficiency virus [HIV] disease (principal); Z79.899 Other long term (current) drug therapy
CPT/HCPCS: 36415; 80053; 80061; 87536; 85025; 86359; 86360

== ENCOUNTER → 2022-02-07 00:36 | Outpatient (CLI) | payer MEDICAID, SELFPAY | PROVIDERS: PCP Nurse Practitioner; Visit Provider Obstetrics & Gynecology Gynecology ==

== ENCOUNTER 2022-05-24 19:16 | Outpatient (REF) | payer MEDICAID, SELFPAY ==
[2022-05-24 21:02] LABS: Anion Gap 8.4 mmol/L (3-11); BUN 13 mg/dL (7-18); CO2 27.6 mmol/L (21.0-32.0); CREATININE 0.9 mg/dL (0.55-1.02); Calcium 9.5 mg/dL (8.5-10.1); Chloride 104 mmol/L (98-107); Glucose 97 mg/dL (74-106); Potassium 4.4 mmol/L (3.5-5.1); Sodium 140 mmol/L (136-145)
[2022-05-24 22:45] LABS: Abs Immature Grans 0.01 10^3/uL (0.0-0.06); Absolute Basophil Count 0.03 10^3/uL (0.0-0.2); Absolute Eosinophil Count 0.18 10^3/uL (0.0-0.7); Absolute Lymphocyte Count 2.27 10^3/uL (1.2-3.4); Absolute Monocyte Count 0.44 10^3/uL (0.1-0.8); Absolute Neutrophil Count 4.07 10^3/uL (1.2-6.7); Basophils % 0.4; Eosinophils % 2.6; HCT 40.8 % (36.0-46.0); Immature Grans % 0.1; Lymphocytes % 32.4; MCHC 34.3 % (32.0-36.0); MCV 96 fL (80-95); Monocytes % 6.3; Neutrophils % 58.2; Platelet Count 198 10^3/uL (130-400); RBC 4.24 10^6/uL (3.93-5.22); RDW 12.5 % (11.7-14.6); RDW-SD 44.3 fL
== END 2022-05-24 19:17 | disposition home or self-care (01) ==
LOC: LBN 19:16
PROVIDERS: PCP Nurse Practitioner; Visit Provider Physician Assistant Medical
DX: R42 Dizziness and giddiness (principal)
CPT/HCPCS: 80048; 85025

== ENCOUNTER 2022-08-14 03:20 | Outpatient (CLI) | payer MEDICAID, SELFPAY ==
[2022-08-14 12:39] LABS: Abs Immature Grans 0.02 10^3/uL (0.0-0.06); Absolute Basophil Count 0.03 10^3/uL (0.0-0.2); Absolute Eosinophil Count 0.11 10^3/uL (0.0-0.7); Absolute Lymphocyte Count 2.07 10^3/uL (1.2-3.4); Absolute Monocyte Count 0.55 10^3/uL (0.1-0.8); Absolute Neutrophil Count 4.09 10^3/uL (1.2-6.7); Basophils % 0.4; Eosinophils % 1.6; HGB 12.9 g/dL (11.2-15.7); Immature Grans % 0.3; Lymphocytes % 30.1; MCH 32.7 pg (27.0-33.0); MCHC 33.1 % (32.0-36.0); MCV 99 fL (80-95); MPV 9.7 fL (8.0-11.0); Neutrophils % 59.6; Platelet Count 191 10^3/uL (130-400); RBC 3.95 10^6/uL (3.93-5.22); RDW 12.8 % (11.7-14.6); RDW-SD 46.7 fL; WBC 6.87 10^3/uL (4.4-10.8)
[2022-08-14 13:04] LABS: ALT 11 U/L (14-59); AST 14 U/L (15-37); Albumin 3.6 g/dL (3.4-5.0); Alkaline Phosphatase 66 U/L (46-116); Anion Gap 6.8 mmol/L (3-11); BUN 14 mg/dL (7-18); Bilirubin, Total 0.4 mg/dL (0.2-1.0); CO2 29.2 mmol/L (21.0-32.0); CREATININE 0.8 mg/dL (0.55-1.02); Calcium 9.5 mg/dL (8.5-10.1); Chloride 106 mmol/L (98-107); Estimated GFR 86.42 (mL/min/1.73m2); Glucose 94 mg/dL (74-106); Potassium 3.9 mmol/L (3.5-5.1); Sodium 142 mmol/L (136-145); Total Protein 7.4 g/dL (6.4-8.2)
[2022-08-15 11:00] LABS: HIV 1 RNA Qualitative Undetected copies/mL (Undetected)
[2022-08-15 15:28] LABS: 4/8 Ratio 1.43 (>=0.90); Absolute CD3 1531 Cells/uL (840-2669); Absolute CD8 639 Cells/uL (154-1097); CD3 72 % (56-84); CD4 43 % (31-64); CD8 30 % (9-39)
== END 2022-08-14 03:21 | disposition home or self-care (01) ==
PROVIDERS: PCP Nurse Practitioner; Visit Provider Nurse Practitioner Family
DX: B20 Human immunodeficiency virus [HIV] disease (principal); Z79.899 Other long term (current) drug therapy
CPT/HCPCS: 36415; 80053; 87536; 85025; 86359; 86360

== ENCOUNTER 2023-01-22 17:26 | Outpatient (REF) | payer MEDICAID, SELFPAY ==
[2023-01-22 17:50] LABS: VALPROIC ACID 42.9 ug/mL
[2023-01-22 18:00] LABS: ALT 27 U/L (14-59); AST 19 U/L (15-37); Albumin 3.6 g/dL (3.4-5.0); Alkaline Phosphatase 92 U/L (46-116); Anion Gap 7.7 mmol/L (3-11); BUN 22 mg/dL (7-18); Bilirubin, Total 0.4 mg/dL (0.2-1.0); CO2 31.3 mmol/L (21.0-32.0); CREATININE 0.9 mg/dL (0.55-1.02); Calcium 9.2 mg/dL (8.5-10.1); Calculated LDL 114 mg/dL (<100); Chloride 104 mmol/L (98-107); Cholesterol 189 mg/dL (<200); Estimated GFR 74.57 (mL/min/1.73m2); Glucose 96 mg/dL (74-106); HDL Cholesterol 51 mg/dL (40-60); Potassium 4.5 mmol/L (3.5-5.1); Sodium 143 mmol/L (136-145); TSH 2.28 uIU/mL (0.36-3.74); Total Protein 7.3 g/dL (6.4-8.2); Triglyceride 123 mg/dL (<150)
[2023-01-22 22:26] LABS: Abs Immature Grans 0.02 10^3/uL (0.0-0.06); Absolute Basophil Count 0.03 10^3/uL (0.0-0.2); Absolute Eosinophil Count 0.16 10^3/uL (0.0-0.7); Absolute Lymphocyte Count 1.84 10^3/uL (1.2-3.4); Absolute Monocyte Count 0.51 10^3/uL (0.1-0.8); Basophils % 0.4; Eosinophils % 2.1; HCT 39.2 % (36.0-46.0); HGB 13.4 g/dL (11.2-15.7); Immature Grans % 0.3; Lymphocytes % 24.7; MCH 33.5 pg (27.0-33.0); MCHC 34.2 % (32.0-36.0); MCV 98 fL (80-95); Monocytes % 6.8; Neutrophils % 65.7; Platelet Count 235 10^3/uL (130-400); RDW 12.3 % (11.7-14.6); RDW-SD 44.5 fL; WBC 7.46 10^3/uL (4.4-10.8)
== END 2023-01-22 17:27 | disposition home or self-care (01) ==
LOC: LBN 17:26
PROVIDERS: PCP Nurse Practitioner; Visit Provider Nurse Practitioner Psychiatric/Mental Health
DX: F31.9 Bipolar disorder, unspecified (principal)
CPT/HCPCS: 80053; 80061; 80164; 83036; 84443; 85025

== ENCOUNTER 2023-01-28 15:42 | Outpatient (REF) | payer MEDICAID, SELFPAY ==
[2023-01-28 16:32] LABS: Bilirubin Negative (Negative); Blood Negative (Negative); Clarity Cloudy (Clear); Glucose Negative (Negative); Ketones Negative (Negative); Leukocyte Esterase Large (Negative); Nitrite Positive (Negative); Specific Gravity 1.025 (1.005-1.025); Urobilinogen 0.2 mg/dL (Up to 0.2); pH 6.5 (5-8)
[2023-01-28 16:41] LABS: Epithelial Cells Few HPF (Negative); RBC 0-2 HPF (0-2); WBC 20-50 HPF (0-5)
[2023-01-28 16:42] LABS: Bacteria Many HPF (Negative); C & S Indicated? Yes; Casts Negative LPF (Negative); Crystals Negative HPF (Negative); Mucus Negative (Negative)
== END 2023-01-28 15:43 | disposition home or self-care (01) ==
LOC: NCHCN 15:42
PROVIDERS: PCP Nurse Practitioner; Visit Provider Nurse Practitioner Family
DX: L29.2 Pruritus vulvae (principal); N89.8 Other specified noninflammatory disorders of vagina; R82.998 Other abnormal findings in urine
CPT/HCPCS: 87077; 81003; 81015; 87086; 87186; 87480; 87510; 87660

== ENCOUNTER 2023-02-05 02:18 | Outpatient (CLI) | payer MEDICAID, SELFPAY ==
[2023-02-05 13:48] LABS: ALT 34 U/L (14-59); AST 26 U/L (15-37); Albumin 3.4 g/dL (3.4-5.0); Alkaline Phosphatase 85 U/L (46-116); Anion Gap 7.1 mmol/L (3-11); BUN 15 mg/dL (7-18); Bilirubin, Total 0.3 mg/dL (0.2-1.0); CO2 28.9 mmol/L (21.0-32.0); CREATININE 0.9 mg/dL (0.55-1.02); Calcium 9.1 mg/dL (8.5-10.1); Chloride 103 mmol/L (98-107); Estimated GFR 74.57 (mL/min/1.73m2); Glucose 104 mg/dL (74-106); Sodium 139 mmol/L (136-145); Total Protein 7.5 g/dL (6.4-8.2)
[2023-02-06 12:54] LABS: HIV 1 RNA Qualitative Undetected copies/mL (Undetected)
== END 2023-02-05 02:19 | disposition home or self-care (01) ==
LOC: LBO 02:18
PROVIDERS: PCP Nurse Practitioner; Visit Provider Nurse Practitioner Family
DX: B20 Human immunodeficiency virus [HIV] disease (principal); Z79.899 Other long term (current) drug therapy
CPT/HCPCS: 36415; 80053; 87536; 85025; 86359; 86360

== ENCOUNTER 2023-05-01 04:32 | Outpatient (CLI) | payer MEDICAID, SELFPAY ==
[2023-05-01 10:20] LABS: VALPROIC ACID 93.6 ug/mL
== END 2023-05-01 04:33 | disposition home or self-care (01) ==
PROVIDERS: PCP Nurse Practitioner; Visit Provider Nurse Practitioner Family
DX: F31.32 Bipolar disorder, current episode depressed, moderate (principal); F43.10 Post-traumatic stress disorder, unspecified
CPT/HCPCS: 36415; 80164

== ENCOUNTER 2023-07-31 03:13 | Outpatient (CLI) | payer MEDICAID, SELFPAY ==
[2023-07-31 13:18] LABS: Abs Immature Grans 0.05 10^3/uL (0.0-0.06); Absolute Basophil Count 0.02 10^3/uL (0.0-0.2); Absolute Eosinophil Count 0.15 10^3/uL (0.0-0.7); Absolute Monocyte Count 0.49 10^3/uL (0.1-0.8); Absolute Neutrophil Count 4.61 10^3/uL (1.2-6.7); Basophils % 0.3; HCT 38.9 % (36.0-46.0); HGB 13.1 g/dL (11.2-15.7); Immature Grans % 0.7; Lymphocytes % 27.3; MCH 33.2 pg (27.0-33.0); MCHC 33.7 % (32.0-36.0); MCV 99 fL (80-95); MPV 9.2 fL (8.0-11.0); Monocytes % 6.7; Platelet Count 152 10^3/uL (130-400); RBC 3.95 10^6/uL (3.93-5.22); RDW-SD 43.9 fL; WBC 7.32 10^3/uL (4.4-10.8)
[2023-07-31 14:01] LABS: ALT 13 U/L (14-59); AST 13 U/L (15-37); Albumin 3.4 g/dL (3.4-5.0); Alkaline Phosphatase 70 U/L (46-116); BUN 20 mg/dL (7-18); Bilirubin, Total 0.3 mg/dL (0.2-1.0); CREATININE 0.9 mg/dL (0.55-1.02); Calcium 9.4 mg/dL (8.5-10.1); Chloride 104 mmol/L (98-107); Estimated GFR 74.57 (mL/min/1.73m2); Glucose 97 mg/dL (74-106); Potassium 4.2 mmol/L (3.5-5.1); Sodium 141 mmol/L (136-145); Total Protein 7.4 g/dL (6.4-8.2)
[2023-08-01 17:06] LABS: 4/8 Ratio 1.45 (>=0.90); Absolute CD3 1629 Cells/uL (840-2669); Absolute CD8 675 Cells/uL (154-1097); CD3 73 % (56-84); CD4 44 % (31-64); CD8 30 % (9-39)
[2023-08-04 11:33] LABS: HIV 1 RNA Qualitative Undetected copies/mL (Undetected)
== END 2023-07-31 03:14 | disposition home or self-care (01) ==
PROVIDERS: PCP Nurse Practitioner; Visit Provider Nurse Practitioner Family
DX: B20 Human immunodeficiency virus [HIV] disease (principal); Z79.899 Other long term (current) drug therapy
CPT/HCPCS: 36415; 80053; 87536; 85025; 86359; 86360

== ENCOUNTER 2023-12-25 13:52 | Outpatient (REF) | payer MEDICAID, SELFPAY ==
[2023-12-25 16:01] LABS: Abs Immature Grans 0.05 10^3/uL (0.0-0.06); Absolute Basophil Count 0.03 10^3/uL (0.0-0.2); Absolute Eosinophil Count 0.21 10^3/uL (0.0-0.7); Absolute Lymphocyte Count 1.85 10^3/uL (1.2-3.4); Absolute Monocyte Count 0.47 10^3/uL (0.1-0.8); Absolute Neutrophil Count 4.53 10^3/uL (1.2-6.7); Basophils % 0.4; Eosinophils % 2.9; HCT 41.6 % (36.0-46.0); HGB 13.6 g/dL (11.2-15.7); Immature Grans % 0.7; Lymphocytes % 25.9; MCH 33.1 pg (27.0-33.0); MCHC 32.7 % (32.0-36.0); MCV 101 fL (80-95); MPV 10.2 fL (8.0-11.0); Monocytes % 6.6; Neutrophils % 63.5; Platelet Count 156 10^3/uL (130-400); RBC 4.11 10^6/uL (3.93-5.22); RDW 12.8 % (11.7-14.6); RDW-SD 48.2 fL; WBC 7.14 10^3/uL (4.4-10.8)
[2023-12-25 16:39] LABS: ALT 9 U/L (14-59); AST 13 U/L (15-37); Albumin 3.4 g/dL (3.4-5.0); Alkaline Phosphatase 66 U/L (46-116); Anion Gap 11.7 mmol/L (3-11); BUN 19 mg/dL (7-18); Bilirubin, Total 0.3 mg/dL (0.2-1.0); CO2 26.3 mmol/L (21.0-32.0); CREATININE 0.9 mg/dL (0.55-1.02); Calcium 9.1 mg/dL (8.5-10.1); Calculated LDL 121 mg/dL (<100); Chloride 106 mmol/L (98-107); Cholesterol 199 mg/dL (<200); Estimated GFR 74.57 (mL/min/1.73m2); Folate 7.3 ng/mL (8.6-20.0); Glucose 96 mg/dL (74-106); HDL Cholesterol 56 mg/dL (40-60); Potassium 4.6 mmol/L (3.5-5.1); Sodium 144 mmol/L (136-145); Total Protein 7.1 g/dL (6.4-8.2); Triglyceride 114 mg/dL (<150)
[2023-12-25 17:45] LABS: Vitamin B12 > 2000 pg/mL (193-986)
[2023-12-25 18:20] LABS: Vitamin D 25 Total 44.6 ng/mL (30-100)
== END 2023-12-25 13:53 | disposition home or self-care (01) ==
LOC: NCHCN 13:52
PROVIDERS: Visit Provider Nurse Practitioner Family
DX: R29.6 Repeated falls (principal); E78.5 Hyperlipidemia, unspecified
CPT/HCPCS: 80053; 80061; 82306; 82607; 82746; 85025

== ENCOUNTER 2024-01-13 14:16 | Outpatient (CLI) | payer MEDICAID, SELFPAY ==
[2024-01-13 15:44] LABS: ALT 12 U/L (14-59); AST 13 U/L (15-37); Albumin 3.3 g/dL (3.4-5.0); Alkaline Phosphatase 67 U/L (46-116); BUN 16 mg/dL (7-18); Bilirubin, Total 0.3 mg/dL (0.2-1.0); CREATININE 1.2 mg/dL (0.55-1.02); Calcium 9.2 mg/dL (8.5-10.1); Chloride 108 mmol/L (98-107); Estimated GFR 52.47 (mL/min/1.73m2); Glucose 87 mg/dL (74-106); Potassium 4.1 mmol/L (3.5-5.1); Sodium 145 mmol/L (136-145); Total Protein 7.1 g/dL (6.4-8.2)
[2024-01-15 12:56] LABS: HIV 1 RNA Qualitative Undetected copies/mL (Undetected)
== END 2024-01-13 14:17 | disposition home or self-care (01) ==
LOC: LBO 14:16
PROVIDERS: PCP Nurse Practitioner Family; Visit Provider Nurse Practitioner Family
DX: B20 Human immunodeficiency virus [HIV] disease (principal); Z79.899 Other long term (current) drug therapy
CPT/HCPCS: 36415; 80053; 87536

== ENCOUNTER 2024-01-14 15:45 | Outpatient (CLI) | payer MEDICAID, SELFPAY ==
[2024-01-14 15:44] LABS: Ammonia 12 umol/L (11-32)
[2024-01-14 16:27] LABS: ALT 12 U/L (14-59); AST 11 U/L (15-37); Albumin 3.2 g/dL (3.4-5.0); Alkaline Phosphatase 69 U/L (46-116); Anion Gap 7.9 mmol/L (3-11); BUN 17 mg/dL (7-18); Bilirubin, Total 0.3 mg/dL (0.2-1.0); CO2 29.1 mmol/L (21.0-32.0); CREATININE 0.9 mg/dL (0.55-1.02); Chloride 107 mmol/L (98-107); Glucose 96 mg/dL (74-106); Potassium 4.5 mmol/L (3.5-5.1); Sodium 144 mmol/L (136-145); TSH 2.25 uIU/Ml (0.36-3.74); Total Protein 6.5 g/dL (6.4-8.2)
[2024-01-14 17:12] LABS: VALPROIC ACID 84.9 ug/mL
== END 2024-01-14 15:46 | disposition home or self-care (01) ==
LOC: LBO 15:45
PROVIDERS: PCP Nurse Practitioner Family; Visit Provider Nurse Practitioner Psychiatric/Mental Health
DX: F31.32 Bipolar disorder, current episode depressed, moderate (principal); Z51.81 Encounter for therapeutic drug level monitoring; R53.83 Other fatigue
CPT/HCPCS: 36415; 80053; 80164; 82140; 84443

== ENCOUNTER 2024-01-20 05:18 | Outpatient (CLI) | payer MEDICAID, SELFPAY ==
[2024-01-20 17:20] LABS: ALT 13 U/L (14-59); AST 16 U/L (15-37); Alkaline Phosphatase 63 U/L (46-116); Anion Gap 11.5 mmol/L (3-11); BUN 23 mg/dL (7-18); Bilirubin, Total 0.3 mg/dL (0.2-1.0); CO2 27.5 mmol/L (21.0-32.0); CREATININE 1.1 mg/dL (0.55-1.02); Calcium 9.4 mg/dL (8.5-10.1); Chloride 106 mmol/L (98-107); Estimated GFR 58.24 (mL/min/1.73m2); Glucose 98 mg/dL (74-106); Potassium 4.3 mmol/L (3.5-5.1); Sodium 145 mmol/L (136-145); Total Protein 7.1 g/dL (6.4-8.2)
[2024-01-22 13:30] LABS: HIV 1 RNA Qualitative Undetected copies/mL (Undetected)
== END 2024-01-20 05:19 | disposition home or self-care (01) ==
LOC: LBO 05:18
PROVIDERS: PCP Nurse Practitioner Family; Visit Provider Nurse Practitioner Family
DX: B20 Human immunodeficiency virus [HIV] disease (principal); Z79.899 Other long term (current) drug therapy
CPT/HCPCS: 36415; 80053; 87536

== ENCOUNTER 2024-12-15 18:39 | Outpatient (REF) | payer MEDICAID, SELFPAY ==
[2024-12-15 21:18] LABS: Abs Immature Grans 0.04 10^3/uL (0.0-0.06); Absolute Basophil Count 0.03 10^3/uL (0.0-0.2); Absolute Eosinophil Count 0.14 10^3/uL (0.0-0.7); Absolute Lymphocyte Count 2.05 10^3/uL (1.2-3.4); Absolute Monocyte Count 0.46 10^3/uL (0.1-0.8); Absolute Neutrophil Count 4.08 10^3/uL (1.2-6.7); Basophils % 0.4 %; Eosinophils % 2.1 %; HCT 39.2 % (36.0-46.0); Immature Grans % 0.6 %; Lymphocytes % 30.1 %; MCH 33.3 pg (27.0-33.0); MCHC 33.2 % (32.0-36.0); MCV 101 fL (80-95); MPV 10.1 fL (8.0-11.0); Monocytes % 6.8 %; Platelet Count 202 10^3/uL (130-400); RDW 12.7 % (11.7-14.6)
[2024-12-15 21:59] LABS: Folate > 20.0 ng/mL (8.6-20.0)
[2024-12-15 23:01] LABS: ALT 9 U/L (14-59); AST 12 U/L (15-37); Albumin 3.6 g/dL (3.4-5.0); Alkaline Phosphatase 74 U/L (46-116); Anion Gap 9.1 mmol/L (3-11); BUN 15 mg/dL (7-18); Bilirubin, Total 0.4 mg/dL (0.2-1.0); CO2 27.9 mmol/L (21.0-32.0); CREATININE 0.8 mg/dL (0.55-1.02); Calcium 9.5 mg/dL (8.5-10.1); Calculated LDL 102 mg/dL (<100); Chloride 104 mmol/L (98-107); Cholesterol 185 mg/dL (<200); Estimated GFR 85.35 (mL/min/1.73m2); Glucose 97 mg/dL (74-106); HDL Cholesterol 66 mg/dL (>or=50); Potassium 4.4 mmol/L (3.5-5.1); Sodium 141 mmol/L (136-145); TSH (W/Ref FT4) 2.14 uIU/mL (0.36-3.74); Total Protein 7.2 g/dL (6.4-8.2); Triglyceride 89 mg/dL (<150)
== END 2024-12-15 18:40 | disposition home or self-care (01) ==
LOC: NCHCN 18:39
PROVIDERS: PCP Nurse Practitioner Family; Visit Provider Nurse Practitioner Family
DX: E53.8 Deficiency of other specified B group vitamins (principal); F31.60 Bipolar disorder, current episode mixed, unspecified; B20 Human immunodeficiency virus [HIV] disease; E78.5 Hyperlipidemia, unspecified
CPT/HCPCS: 80053; 80061; 82746; 84443; 85025

== ENCOUNTER 2025-03-10 08:39 | Outpatient (CLI) | payer MEDICAID, SELFPAY ==
[2025-03-10 08:28] LABS: Abs Immature Grans 0.04 10^3/uL (0.0-0.06); Absolute Basophil Count 0.03 10^3/uL (0.0-0.2); Absolute Lymphocyte Count 2.41 10^3/uL (1.2-3.4); Absolute Monocyte Count 0.41 10^3/uL (0.1-0.8); Absolute Neutrophil Count 3.48 10^3/uL (1.2-6.7); Basophils % 0.5 %; HCT 36.2 % (36.0-46.0); Immature Grans % 0.6 %; Lymphocytes % 36.7 %; MCH 33.8 pg (27.0-33.0); MCHC 33.1 % (32.0-36.0); MCV 102 fL (80-95); MPV 9.4 fL (8.0-11.0); Monocytes % 6.2 %; Platelet Count 152 10^3/uL (130-400); RBC 3.55 10^6/uL (3.93-5.22); RDW 12.6 % (11.7-14.6); RDW-SD 47.8 fL; WBC 6.57 10^3/uL (4.4-10.8)
[2025-03-10 10:34] LABS: ALT 20 U/L (14-59); AST 13 U/L (15-37); Albumin 3.1 g/dL (3.4-5.0); Alkaline Phosphatase 64 U/L (46-116); Anion Gap 8.7 mmol/L (3-11); BUN 14 mg/dL (7-18); Bilirubin, Total 0.3 mg/dL (0.2-1.0); CO2 28.3 mmol/L (21.0-32.0); Calcium 9.2 mg/dL (8.5-10.1); Calculated LDL 67 mg/dL (<100); Chloride 107 mmol/L (98-107); Cholesterol 143 mg/dL (<200); Glucose 101 mg/dL (74-106); HDL Cholesterol 56 mg/dL (>or=50); Potassium 3.8 mmol/L (3.5-5.1); Sodium 144 mmol/L (136-145); Total Protein 6.7 g/dL (6.4-8.2); Triglyceride 103 mg/dL (<150)
[2025-03-11 15:24] LABS: 4/8 Ratio 1.81 (>=0.90); Absolute CD3 2009 Cells/uL (840-2669); Absolute CD8 725 Cells/uL (154-1097); CD3 75 % (56-84); CD4 49 % (31-64); CD8 27 % (9-39)
[2025-03-14 14:42] LABS: HIV 1 RNA Qualitative Undetected Copys/mL (Undetected)
== END 2025-03-10 08:40 | disposition home or self-care (01) ==
LOC: LBO 08:40
PROVIDERS: PCP Nurse Practitioner Family; Visit Provider Nurse Practitioner Family
DX: B20 Human immunodeficiency virus [HIV] disease (principal); Z79.899 Other long term (current) drug therapy
CPT/HCPCS: 36415; 80053; 80061; 87536; 85025; 86359; 86360

== ENCOUNTER 2025-04-20 14:58 | Outpatient (REF) | payer MEDICAID, SELFPAY ==
--- NOTE | 2025-04-20 14:30 | PAPFT_PTH ---
PATIENT: Diann Orta LOC: [facility]#:[id number] AGE/SX: 60/F ROOM: RE04/20/[address]: Mae Sanchez NP : 1965 BED: DIS: 04/20/2025 SPEC #: [id number] RECD: 04/20/25 17:51 STATUS: SHAYLA REQ #: [id number] WALKER: 04/20/25 14:[address]: Daniel MULLINS,Mae [facility]PT: [facility] Cytology RECD BY: Lisa Espinoza ENTERED: 04/20/25 17:51 SP TYPE: PAPFT OTHR DR: RAMONA MEJIA NP Tissues: 1 - CX/ENDOCX FOR PAP SMEARS Procedures: PAP THIN PREP/UVM Screening HPV DNA PROBE Comments: [id number] (HPV 16 & 18/45)
== END 2025-04-20 14:59 | disposition home or self-care (01) ==
LOC: LBN 14:58
PROVIDERS: PCP Nurse Practitioner Family; Visit Provider Nurse Practitioner Women's Health
DX: N89.8 Other specified noninflammatory disorders of vagina (principal); Z12.4 Encounter for screening for malignant neoplasm of cervix
CPT/HCPCS: 88142; 87480; 87510; 87624; 87660

== ENCOUNTER 2025-05-06 00:38 | Outpatient (CLI) | payer MEDICAID, SELFPAY ==
--- NOTE | 2025-05-06 12:45 | DI.MAMMO_ITS ---
Exam(s) MAMMO SCREENING EXAM: MAMMO SCREENING CLINICAL HISTORY: screening. TECHNIQUE: Bilateral full field digital CC and MLO mammographic images were obtained with 3D tomosynthesis and utilizing computer aided detection (CAD). COMPARISON: Prior mammograms were reviewed. Last mammogram was February 2019. FINDINGS: There are no CAD designations. There are no new spiculated masses nor malignant appearing microcalcification groups. There is no significant architectural distortion nor skin thickening-retraction. IMPRESSION: No radiographic evidence of malignancy. BI-RADS Category 1 - Negative Breast Density - Category B - There are scattered areas of fibroglandular density. Breast density Category C or D implies that the patient has dense breast tissue. Dense breast tissue can make it harder to find cancer on a mammogram. Dense breast tissue is also associated with an increased risk of breast cancer. This information about the result of the mammogram report was provided to the patient to raise their awareness. Use this report when you speak with the patient about their risks for breast cancer, which includes their family history. At that time, you may recommend additional screening tests (Ultrasound or MRI) as these tests may add significant information. A negative radiographic report should not delay biopsy if a dominant or clinically suspicious mass is present. Up to ten percent of cancers are not identified on mammography. A negative report may reinforce clinical impression. Adenosis and dense breasts may obscure an underlying neoplasm. False positive reports average 6 to 10%. Patient will receive a letter notifying them of these results.
== END 2025-05-06 00:58 ==
LOC: DI 00:38
PROVIDERS: PCP Nurse Practitioner Family; Visit Provider Nurse Practitioner Women's Health
DX: Z12.31 Encounter for screening mammogram for malignant neoplasm of breast (principal); R92.323 Mammographic fibroglandular density, bilateral breasts
CPT/HCPCS: 77063; 77067

== ENCOUNTER 2025-06-30 10:51 | Emergency (ER) | payer MEDICAID, SELFPAY ==
[2025-06-30 11:08] VITALS: BP 116/83; PULSE 68; RESP 16; TEMP 36.1; O2SAT 93
[2025-06-30 11:13] VITALS: BP 116/83; PULSE 68; RESP 16; TEMP 36.1; O2SAT 93
[2025-06-30 12:11] LABS: Abs Immature Grans 0.04 10^3/uL (0.0-0.06); HCT 38.4 % (36.0-46.0); HGB 12.5 g/dL (11.2-15.7); Immature Grans % 0.5 %; MCH 32.6 pg (27.0-33.0); MCHC 32.6 % (32.0-36.0); MCV 100 fL (80-95); MPV 10.2 fL (8.0-11.0); Platelet Count 185 10^3/uL (130-400); RBC 3.83 10^6/uL (3.93-5.22); RDW 12.8 % (11.7-14.6); RDW-SD 46.3 fL; WBC 7.89 10^3/uL (4.4-10.8)
[2025-06-30 12:27] LABS: ALT 15 U/L (14-59); AST 18 U/L (15-37); Albumin 3.2 g/dL (3.4-5.0); Alkaline Phosphatase 78 U/L (46-116); Anion Gap 9.3 mmol/L (3-11); BUN 9 mg/dL (7-18); Bilirubin, Total 0.4 mg/dL (0.2-1.0); CO2 27.7 mmol/L (21.0-32.0); Calcium 8.9 mg/dL (8.5-10.1); Chloride 106 mmol/L (98-107); Estimated GFR 73.64 (mL/min/1.73m2); Glucose 95 mg/dL (74-106); Magnesium 1.7 mg/dL (1.8-2.4); Potassium 4.0 mmol/L (3.5-5.1); Sodium 143 mmol/L (136-145); Total Protein 6.9 g/dL (6.4-8.2)
[2025-06-30 12:39] LABS: Lithium < 0.2 mmol/L (0.6-1.2)
[2025-06-30 13:11] LABS: Glucose Negative (Negative)
[2025-06-30 13:19] LABS: C & S Indicated? Yes; RBC 0-2 HPF (0-2); WBC 20-50 HPF (0-5)
--- NOTE | 2025-06-30 13:46 | W.ED.GENAD ---
Discharge Plan Disposition Patient Disposition: Home Condition: Stable Discharge Details Clinical Impression: Hallucinations, UTI (urinary tract infection), First degree atrioventricular block Primary Care Provider: RAMONA MEJIA ED Provider: Gunnar Mahan Home Meds and New Rx's Prescriptions: New cephalexin 500 mg capsule 500 mg PO BID Qty: 13 0RF Continued omeprazole 20 mg capsule,delayed release(DR/EC) 20 mg PO DAILY docusate sodium [Colace] 100 mg capsule 100 mg PO BID valacyclovir [Valtrex] 500 mg tablet 500 mg PO DAILY cholecalciferol (vitamin D3) [Vitamin D3] 2,000 UNIT capsule 2,000 unit PO DAILY sertraline 100 mg tablet 100 mg PO QPM clonazepam [Klonopin] 0.5 mg tablet 0.5 mg PO BID PRN Tivicay 50 MG tablet 1 tab PO DAILY acetaminophen 325 mg Tablet 650 mg PO Q6H PRN PRN atorvastatin 20 mg tablet 20 mg PO .QPM Patient Comments: TAKE ONE TABLET BY MOUTH DAILY AT BEDTIME topiramate 25 mg tablet 25 mg PO BID Patient Comments: TAKE ONE TABLET BY MOUTH TWICE A DAY risperidone [Risperdal] 3 mg tablet 3 mg PO BID Patient Comments: Take 1 tablet by mouth every morning divalproex [Depakote ER] 500 mg tablet extended release 24 hr 500 mg PO DAILY Patient Comments: take 1 po at night for 2 days and then increase to 2 po at hs benztropine 1 mg tablet 1 mg PO BID Patient Comments: Take 1 tablet by mouth twice a day zolpidem [Ambien] 5 mg tablet 5 mg PO HS Patient Comments: Take 1 tablet by mouth at bedtime as needed melatonin 3 mg tablet 3 mg PO QHS prazosin 2 mg capsule 2 mg PO QPM propranolol 20 mg tablet 20 mg PO QAM senna 8.6 mg capsule 8.6 mg PO BID vitamin B complex [B-Complex] Tablet 1 tab PO DAILY Descovy 1 EACH tablet 1 tab PO DAILY Discontinued lithium carbonate 450 mg tablet extended release 450 mg PO HS lithium carbonate 300 mg tablet extended release 300 mg PO HS Patient Comments: pt unsure of dose Discharge Instructions Instructions: Urinary Tract Infection, Adult ED Additional Instructions: Please take full course of antibiotics as prescribed. Your initial dose was given here in the emergency department. Your next dose should be later this afternoon. Please follow-up with your primary care physician. Call today to arrange timely outpatient follow-up for later this week or early next week. Exira is currently listed in your medications here at the hospital but this was not listed on your primary care medication list. Please be sure to take your medications as prescribed. HIV testing including viral load and CD4 count were not checked today. Please be sure to discuss this with your infectious disease specialist and PCP. Return to the ER immediately for any worsening or new concerning symptoms. Referrals: RAMONA MEJIA [facility] [Primary Care Provider, Medicine] Discharge Data Discharge Date/Time-TO BE ENTERED AT DEPARTURE: 06/30/25 14:51 HPI General Mode of arrival: ambulatory. Date/Time Provider Initiated Documentation: 06/30/25 11:16. Limitations to Documentation: no limitations. Information obtained by: patient. HPI Narrative: HISTORY OF PRESENT ILLNESS This is a 60-year-old female with a history of bipolar affective disorder, depression, PTSD, mild cognitive impairment, and HIV presenting with symptoms concerning for a urinary tract infection (UTI). She is accompanied by her daughter. The patient reports experiencing hallucinations, which have been increasing in frequency over the past few weeks. These hallucinations include seeing disfigured faces and aliens, and hearing voices. She believes these symptoms may be related to recent changes in her medications made by her psychiatrist, Dr. Elias Barboza. The patient does not have a list of her current medications. Daughter concerned that symptoms may be related to urinary tract infection as patient had similar presentation with UTI in the past. Patient does note some discomfort during urination. She is not sexually active. Patient also notes intermittent episodes of brief loss of consciousness ongoing for some time. She reports no pain at present. She has no known heart or lung disease, and no history of cancer. The patient does not smoke cigarettes, drink alcohol, or use drugs. Related Data Home Medications ?Medication ?Instructions ?Recorded ?Confirmed dolutegravir 50 mg tablet (Tivicay) 1 tab PO DAILY 07/18/16 06/30/25 cholecalciferol (vitamin D3) 50 2,000 unit PO DAILY 01/21/17 06/30/25 mcg (2,000 unit) capsule (Vitamin D3) emtricitabine 200 mg-tenofovir 1 tab PO DAILY 03/26/18 06/30/25 alafenamide fumarate 25 mg tablet (Descovy) clonazepam 0.5 mg tablet (Klonopin) 0.5 mg PO BID PRN 01/06/19 06/30/25 sertraline 100 mg tablet 100 mg PO QPM 01/06/19 06/30/25 docusate sodium 100 mg capsule 100 mg PO BID 02/02/19 06/30/25 (Colace) omeprazole 20 mg capsule,delayed 20 mg PO DAILY 02/02/19 06/30/25 release valacyclovir 500 mg tablet 500 mg PO DAILY 04/26/19 06/30/25 (Valtrex) acetaminophen 325 mg tablet 650 mg PO Q6H PRN PRN 01/25/20 06/30/25 atorvastatin 20 mg tablet 20 mg PO .QPM 01/25/20 06/30/25 benztropine 1 mg tablet 1 mg PO BID 01/25/20 06/30/25 divalproex 500 mg tablet,extended 500 mg PO DAILY 01/25/20 06/30/25 release 24 hr (Depakote ER) risperidone 3 mg tablet (Risperdal) 3 mg PO BID 01/25/20 06/30/25 topiramate 25 mg tablet 25 mg PO BID 01/25/20 06/30/25 zolpidem 5 mg tablet (Ambien) 5 mg PO HS 01/25/20 06/30/25 cephalexin 500 mg capsule 500 mg PO BID #13 caps 06/30/25 melatonin 3 mg tablet 3 mg PO QHS 06/30/25 06/30/25 prazosin 2 mg capsule 2 mg PO QPM 06/30/25 06/30/25 propranolol 20 mg tablet 20 mg PO QAM 06/30/25 06/30/25 sennosides 8.6 mg capsule (senna) 8.6 mg PO BID 06/30/25 06/30/25 vitamin B complex (B-Complex 1 tab PO DAILY 06/30/25 06/30/25 tablet) Previous Rx's ?Medication ?Instructions ?Recorded cephalexin 500 mg capsule 500 mg PO BID #13 caps 06/30/25 Allergies Allergy/AdvReac Type Severity Reaction Status Date / Time No Known Allergies Allergy Unverified 06/30/25 13:14 General Stated Complaint: GenMedical DIANA: 3 Review of Systems All systems reviewed & are unremarkable except as noted in HPI and below Constitutional Constitutional: Denies fever(s) Exam Const General: cooperative and no acute distress HENMT Mouth: moist mucous membranes Eyes Conjunctivae: normal conjunctivae Sclera: normal sclerae Resp Auscultation: clear to auscultation bilaterally, no rales, no rhonchi and no wheezes Cardio Rate: regular rate and not tachycardic Rhythm: regular rhythm Heart Sounds: no gallops, no murmurs and no rubs GI Palpation: soft, not firm, no guarding, no masses, not rigid and nontender Skin General skin exam: no rashes or lesions noted Neuro General: patient alert, patient awake, patient oriented x3 and tone normal Cognition: normal cognition Speech: speech normal Motor: strength 5/5 throughout Sensory Exam: no sensory deficits noted Extrem General: no edema Course Vital Signs Vital signs: Vital Signs Temperature 36.1 C L 06/30/25 11:08 Pulse 68 06/30/25 11:08 Respiratory Rate 16 06/30/25 11:08 Blood Pressure 116/83 06/30/25 11:08 Pulse Oximetry 93 06/30/25 11:08 Temperature 36.1 C L 06/30/25 11:13 Temperature Source Tympanic 06/30/25 11:08 Pulse 68 06/30/25 11:13 Respiratory Rate 16 06/30/25 11:13 Blood Pressure 116/83 06/30/25 11:13 Blood Pressure Position Sitting 06/30/25 11:08 Pulse Oximetry 93 06/30/25 11:13 Oxygen Delivery Method Room Air 06/30/25 11:08 Oxygen Flow Rate 0 06/30/25 11:08 Pain Level 0 06/30/25 11:13 Lab/Test Results Lab/Test Results: 06/30/25 13:05 Urine - Reflex from Ua Urine Culture - Pending Laboratory Tests Range/Units 06/30/25 06/30/25 12:05 13:05 WBC (4.4-10.8) 10^3/uL 7.89 RBC (3.93-5.22) 10^6/uL 3.83 L Hgb (11.2-15.7) g/dL 12.5 Hct (36.0-46.0) % 38.4 MCV (80-95) fL 100 H MCH (27.0-33.0) pg 32.6 MCHC (32.0-36.0) % 32.6 RDW (11.7-14.6) % 12.8 Plt Count (130-400) 10^3/uL 185 MPV (8.0-11.0) fL 10.2 Immature Gran % % 0.5 Neutrophils % % 61.9 Lymphocytes % % 27.8 Monocytes % % 7.2 Eosinophils % % 2.2 Basophils % % 0.4 Nucleated RBC % (0.0-0.3) % 0.0 Absolute Neutrophils (1.2-6.7) 10^3/uL 4.89 Absolute Lymphocytes (1.2-3.4) 10^3/uL 2.19 Absolute Monocytes (0.1-0.8) 10^3/uL 0.57 Absolute Eosinophils (0.0-0.7) 10^3/uL 0.17 Absolute Basophils (0.0-0.2) 10^3/uL 0.03 Sodium (136-145) mmol/L 143 Potassium (3.5-5.1) mmol/L 4.0 Chloride (98-107) mmol/L 106 Carbon Dioxide (21.0-32.0) mmol/L 27.7 Anion Gap (3-11) mmol/L 9.3 BUN (7-18) mg/dL 9 Creatinine (0.55-1.02) mg/dL 0.9 Est GFR (CKD-EPI 2020) (mL/min/1.73m2) 73.64 Glucose (74-106) mg/dL 95 Calcium (8.5-10.1) mg/dL 8.9 Magnesium (1.8-2.4) mg/dL 1.7 L Total Bilirubin (0.2-1.0) mg/dL 0.4 AST (15-37) U/L 18 ALT (14-59) U/L 15 Alkaline Phosphatase (46-116) U/L 78 Total Protein (6.4-8.2) g/dL 6.9 Albumin (3.4-5.0) g/dL 3.2 L Urine Color (Yellow) Yellow Urine Clarity (Clear) Cloudy Urine pH (5-8) 5.5 Ur Specific [place] (1.005-1.025) >= 1.030 H Urine Protein (Neg-Trace) mg/dL 30 H Urine Ketones (Negative) mg/dL Trace H Urine Blood (Negative) Trace-intact H Urine Nitrite (Negative) Positive H Urine Bilirubin (Negative) Negative Urine Urobilinogen (Up to 0.2) mg/dL 0.2 Ur Leukocyte Esterase (Negative) Moderate H Urine RBC (0-2) HPF 0-2 Urine WBC (0-5) HPF 20-50 H Ur Epithelial Cells (Negative) HPF Few Urine Crystals (Negative) HPF Negative Urine Bacteria (Negative) HPF Moderate Urine Casts (Negative) LPF 0-2 Hyaline Urine Mucus (Negative) Negative Ur Culture Indicated? Yes Urine Glucose (Negative) mg/dL Negative Exira (0.6-1.2) mmol/L < 0.2 L Medical Decision Making ASSESSMENT AND PLAN Initial Assessment: 60-year-old female with multiple medical problems including bipolar affective disorder, depression, PTSD, mild cognitive impairment, HIV. Presenting with symptoms concerning for UTI and hallucinations. Differential Diagnosis: - UTI - Medication side effects - Hallucinations - Possible syncope ED Course: - Urine test obtained - EKG performed, and reviewed and interpreted by me: First-degree AV block, please see report. - Labs reviewed and urinalysis consistent with UTI. Plan to initiate treatment. - Patient reassessed remained stable. Plan for discharge with close outpatient follow-up with PCP. Patient was instructed to review results from today and discuss syncopal episodes with primary care physician. Clinical Impression: - Urinary tract infection - Hallucinations Disposition: - Follow-Up: PCP, medication review needed. This document was written with the assistance of FABIENNE Garcia. The patient consented to its use. Lab Data Lab results reviewed: Yes I reviewed the patient's lab results. Labs: 06/30/25 13:05 Urine - Reflex from Ua Urine Culture - Final Escherichia coli Laboratory Tests Range/Units 06/30/25 06/30/25 12:05 13:05 WBC (4.4-10.8) 10^3/uL 7.89 RBC (3.93-5.22) 10^6/uL 3.83 L Hgb (11.2-15.7) g/dL 12.5 Hct (36.0-46.0) % 38.4 MCV (80-95) fL 100 H MCH (27.0-33.0) pg 32.6 MCHC (32.0-36.0) % 32.6 RDW (11.7-14.6) % 12.8 Plt Count (130-400) 10^3/uL 185 MPV (8.0-11.0) fL 10.2 Immature Gran % % 0.5 Neutrophils % % 61.9 Lymphocytes % % 27.8 Monocytes % % 7.2 Eosinophils % % 2.2 Basophils % % 0.4 Nucleated RBC % (0.0-0.3) % 0.0 Absolute Neutrophils (1.2-6.7) 10^3/uL 4.89 Absolute Lymphocytes (1.2-3.4) 10^3/uL 2.19 Absolute Monocytes (0.1-0.8) 10^3/uL 0.57 Absolute Eosinophils (0.0-0.7) 10^3/uL 0.17 Absolute Basophils (0.0-0.2) 10^3/uL 0.03 Sodium (136-145) mmol/L 143 Potassium (3.5-5.1) mmol/L 4.0 Chloride (98-107) mmol/L 106 Carbon Dioxide (21.0-32.0) mmol/L 27.7 Anion Gap (3-11) mmol/L 9.3 BUN (7-18) mg/dL 9 Creatinine (0.55-1.02) mg/dL 0.9 Est GFR (CKD-EPI 2020) (mL/min/1.73m2) 73.64 Glucose (74-106) mg/dL 95 Calcium (8.5-10.1) mg/dL 8.9 Magnesium (1.8-2.4) mg/dL 1.7 L Total Bilirubin (0.2-1.0) mg/dL 0.4 AST (15-37) U/L 18 ALT (14-59) U/L 15 Alkaline Phosphatase (46-116) U/L 78 Total Protein (6.4-8.2) g/dL 6.9 Albumin (3.4-5.0) g/dL 3.2 L Urine Color (Yellow) Yellow Urine Clarity (Clear) Cloudy Urine pH (5-8) 5.5 Ur Specific [place] (1.005-1.025) >= 1.030 H Urine Protein (Neg-Trace) mg/dL 30 H Urine Ketones (Negative) mg/dL Trace H Urine Blood (Negative) Trace-intact H Urine Nitrite (Negative) Positive H Urine Bilirubin (Negative) Negative Urine Urobilinogen (Up to 0.2) mg/dL 0.2 Ur Leukocyte Esterase (Negative) Moderate H Urine RBC (0-2) HPF 0-2 Urine WBC (0-5) HPF 20-50 H Ur Epithelial Cells (Negative) HPF Few Urine Crystals (Negative) HPF Negative Urine Bacteria (Negative) HPF Moderate Urine Casts (Negative) LPF 0-2 Hyaline Urine Mucus (Negative) Negative Ur Culture Indicated? Yes Urine Glucose (Negative) mg/dL Negative Exira (0.6-1.2) mmol/L < 0.2 L PFSH All Active Problems First degree atrioventricular block (Acute) UTI (urinary tract infection) (Acute) Hallucinations (Acute) Mild cognitive impairment (Acute) Epigastric pain (Acute) Constipation (Acute) Depression (Chronic) PTSD (post-traumatic stress disorder) (Acute) HIV (human immunodeficiency virus infection) (Chronic) well controlled. Bipolar affective disorder (Chronic) 2018 exacerbation of depression inpatient stay at [facility] [place] Medical History Alcohol abuse, in remission Opioid abuse, in remission Multiple pigmented nevi ASCUS with positive high risk HPV cervical 01/21/17 Colpo bx: reactive atypia vs low grade changes. 2018 normal Pap. Recommend repeating Pap/HPV 2020. UTI (urinary tract infection) Vaginal discharge Surgical History Hx of tonsillectomy Family History Mother Bipolar 1 disorder Dementia Daughter Depression Social History Smoking/Tobacco Use Status: Never Smoking risk assessment performed?: Yes Alcohol Intake: former Drug use: Current Sobriety Substance use type: does not use Household members: none Housing: apartment Sexually active: No Do you think of yourself as: straight/heterosexual Current gender identity: female Do you feel safe at home: Yes (not when i'm alone though) Female Reproductive History Menstrual Menopause type: natural (Stopped OCPs in 2018. Amenorrhea since) History History 4 Para 3 Hx # Term Pregnancies Multiple births Hx # Pregnancies Ectopic pregnancies AB induced Hx Number of Living Children AB spontaneous
--- NOTE | 2025-06-30 14:00 | RT.EKG_ITS ---
APPROVED REPORT Exam: Resting ECG Reason for Exam: syncope Patient Location: E HR:66 bpm ECG Measurements Heart Rate 66 AXIS ID 211 P 45 QRSd 88 QRS 5 QT 429 T 28 QTc 448 Conclusion Sinus rhythm...normal P axis, V-rate 60- 99 Prolonged ID interval...ID >210, V-rate 50- 90
[2025-06-30] MEDS: Cephalexin 500 MG CAP PO (14:03)
[2025-06-30 14:49] VITALS: BP 104/78; TEMP 36.4; O2SAT 97
--- NOTE | 2025-07-02 08:32 | NUR.NOTE ---
Accessed Pt chart to document antibiotics given to Pt for this visit, on the Specimen Report. Report was given to the providers.
== END 2025-06-30 14:51 | disposition home or self-care (01) ==
PROVIDERS: Emergency Provider Student in an Organized Health Care Education/Training Program; PCP Nurse Practitioner Family
DX: N39.0 Urinary tract infection, site not specified (principal); R44.3 Hallucinations, unspecified; Z21 Asymptomatic human immunodeficiency virus [HIV] infection status; I44.0 Atrioventricular block, first degree
CPT/HCPCS: 99284 ×2; 36415; 80053; 87077; 93005; 80178; 81003; 81015; 83735; 85025; 87086; 87186; 93010